=== PATIENT | male | born 1930 | race Caucasian/White ===

== ENCOUNTER 2016-03-08 18:35 | Emergency (ER) | payer OTHER ==
[~2016-03-08] VITALS: Ht 180.3 cm; Wt 58.7 kg
[~2016-03-08 18:35] MED LIST: Z.0.NO CURRENT MEDS
[2016-03-08 18:47] VITALS: BP 113/62; PULSE 63; RESP 16; TEMP 98.3; O2SAT 97
[2016-03-08] MEDS ORDERED: VITA100064 PO (19:04)
[2016-03-08] MEDS ORDERED: TETANUS/DIPHTHERIA TOXOID ADULT 0.5 ML VIAL IM ONE (19:15)
--- NOTE | 2016-03-08 20:03 | RADHPO ---
EXAM DATE/TIME: 03/08/2016 19:25 [facility] COMPARISON: No previous studies available for comparison. INDICATIONS : Trauma. Fall. Abrasion left temporal region. RADIATION DOSE: 58.98 CTDIvol (mGy) MEDICAL HISTORY : None SURGICAL HISTORY : None. ENCOUNTER: Initial ACUITY: 1 day PAIN SCALE: 2/10 LOCATION: Left temporal TECHNIQUE: Multiple contiguous axial images were obtained of the head. Using automated exposure control and adj ustment of the mA and/or kV according to patient size, radiation dose was kept as low as reasonably a chievable to obtain optimal diagnostic quality images. FINDINGS: There is mild atrophy. No hemorrhage, acute infarct, or mass. No fractures are seen. There is a parti ally calcified mass in the right temporal soft tissues on axial image #9 measuring 1.5 x 1.4 cm CONCLUSION: Right temporal skin mass which should be evaluated with direct inspection. No acute findings. David Yun MD on March 08, 2016 at 20:01 Board Certified Radiologist. This report was verified electronically.
--- NOTE | 2016-03-08 20:05 | RADHPO ---
EXAM DATE/TIME: 03/08/2016 19:25 [facility] COMPARISON: No previous studies available for comparison. INDICATIONS : Trauma. Fall. Neck pain. RADIATION DOSE: 26.63 CTDIvol (mGy) MEDICAL HISTORY : None SURGICAL HISTORY : None. ENCOUNTER: Initial ACUITY: 1 day PAIN SCALE: 2/10 LOCATION: neck TECHNIQUE: Volumetric scanning of the cervical spine was performed. Multiplanar reconstructions in the sagittal, coronal and oblique axial planes were performed. Using automated exposure control and adjustment o f the mA and/or kV according to patient size, radiation dose was kept as low as reasonably achievable to obtain optimal diagnostic quality images. FINDINGS: There is severe disc space narrowing at C5-6 and C6-7 and C7-T1 with endplate sclerosis and multileve l osteophytosis. No prevertebral soft tissue swelling or compression deformity. Moderate multilevel f acet hypertrophic changes greatest at C3-4 and C4-5. The odontoid process is intact. Multilevel uncov ertebral hypertrophy greatest at C4-5 and C5-6. Carotid artery calcifications are noted bilaterally. Multiple central disc protrusions are noted at C2-3, C3-4, C4-5. Diffuse disc osteophyte complex at C 5-6 and C6-7. Visualized portions of the lungs demonstrate emphysema. Mild to moderate canal stenosis at C3-4, moderate stenosis at C4-5 and severe stenosis at C5-6 and C6-7. CONCLUSION: Degenerative changes are noted without evidence for acute fracture or listhesis. Carotid artery ather osclerosis and emphysema. David Yun MD on March 08, 2016 at 20:02 Board Certified Radiologist. This report was verified electronically.
--- NOTE | 2016-03-08 20:29 | PD ---
HPI Chief Complaint: Head Injury Time Seen by Provider: 18:53 Travel History International Travel<30 days: No Contact w/Intl Traveler<30days: No Traveled to known affect area: No History of Present Illness HPI Patient is an 85-year-old male who comes in after a trip and fall overnight. He says that his feet slipped out from under him and he fell. His reports that he hit the side of his head on the nightstand. There was no loss of consciousness. He has been feeling fine since the event. They came in because it was still oozing blood. Patient has several skin cancers, which his says he does not want to have treated. He denies any headache, dizziness, blurred vision. He denies chest pain or shortness of breath. He denies numbness or tingling in his extremities. He does not know when his last tetanus vaccine was. PFSH Past Medical History Cancer: Yes (Skin cancer to back and face. ) Tetanus Vaccination: Unknown Influenza Vaccination: No Past Surgical History Surgical History: No Previous Surgery Social History Alcohol Use: No (Quit years ago per pt) Tobacco Use: Yes (1/2 PACK A DAY) Substance Use: No Allergies-Medications (Allergen,Severity, Reaction): Coded Allergies: No Known Allergies (Verified , 03/08/16) Reported Meds & Prescriptions Reported Meds & Active Scripts Active Reported Vitamin D (Cholecalciferol) 1,000 Unit Tab 1,000 Units PO DAILY Review of Systems Except as stated in HPI: all other systems reviewed are Neg General / Constitutional: No: Fever, Chills Eyes: No: Diploplia, Blurred Vision HENT: No: Headaches, Lightheadedness Cardiovascular: No: Chest Pain or Discomfort Respiratory: No: Shortness of Breath Gastrointestinal: No: Nausea, Vomiting Musculoskeletal: No: Pain Skin: Positive Lumps, Positive Lesions, No Change in Pigmentation Neurologic: No: Weakness, Dizziness, Syncope Physical Exam Narrative GENERAL: Awake and alert in no acute distress. SKIN: Warm and dry. Several lesions around the face that look cancerous. Abrasion to the left side of the forehead, no active bleeding. HEAD: Atraumatic. Normocephalic. EYES: Pupils equal and round. No scleral icterus. Her ocular movements intact. ENT: Mucous membranes pink and moist. NECK: Trachea midline. No JVD. CARDIOVASCULAR: Regular rate and rhythm. No murmur appreciated. RESPIRATORY: No accessory muscle use. Clear to auscultation. Breath sounds equal bilaterally. MUSCULOSKELETAL: No obvious deformities. No clubbing. No cyanosis. No edema. NEUROLOGICAL: Awake and alert. No obvious cranial nerve deficits. Motor grossly within normal limits. Normal speech. PSYCHIATRIC: Appropriate mood and affect; insight and judgment normal. Data Data Last Documented VS Vital Signs Date Time Temp Pulse Resp B/P Pulse Ox O2 Delivery O2 Flow Rate FiO2 03/08/16 20:30 76 18 115/64 98 Room Air 03/08/16 18:[address] Brain W/O Iv Contrast(Rout) (03/08/16 ) Ct Cerv Spine W/O Contrast (03/08/16 ) Tetanus/Diphtheria Tox Adult (Tetanus/Di (03/08/16 19:15) Wound Care (03/08/16 19:29) MDM Medical Decision Making Medical Screen Exam Complete: Yes Emergency Medical Condition: Yes Differential Diagnosis ICH versus skull fracture versus abrasion versus fall Narrative Course Patient is an 85-year-old male who comes in after a fall early this morning. Exam shows abrasion to left side of forehead, no active bleeding. CT head and cervical spine performed show no acute abnormalities. Wound bandaged and tetanus vaccine is updated. advised to change the bandage daily, make sure it clean and dry. Advised they should have the skin cancers looked at as the likely need to be removed. Advised follow-up with his doctor. Advised to return to the ED as needed for any worsening symptoms. Diagnosis Primary Impression: Fall Qualified Code: W19.XXXA - Fall, initial encounter Additional Impression: Abrasion Patient Instructions: Abrasion (ED), Fall Prevention (ED), General Instructions Additional Instructions: Follow up with your doctor. You should see a cotton expert regarding the skin cancer. Return to the ED as needed for any worsening symptoms. Disposition: 01 DISCHARGE HOME Condition: Stable Lindsay Gutierrez MD Mar 08, 2016 20:29
[2016-03-08 20:30] VITALS: BP 115/64; PULSE 76; RESP 18; O2SAT 98
== END 2016-03-08 21:00 | disposition home or self-care (01) ==
LOC: PHED 18:35
DX: S00.81XA Abrasion of other part of head, initial encounter (principal); F17.210 Nicotine dependence, cigarettes, uncomplicated; W01.190A Fall on same level from slipping, tripping and stumbling with subsequent striking against furniture, initial encounter; Y93.9 Activity, unspecified; Y92.9 Unspecified place or not applicable; Y99.9 Unspecified external cause status; Z23 Encounter for immunization
CPT/HCPCS: 70450; 72125; 90471; 90714

== ENCOUNTER 2017-07-24 08:57 | Inpatient (IN) | payer OTHER, MEDICARE ==
[2017-07-24] VITALS (10 sets, daily range): BP systolic 99–178; BP diastolic 53–81; PULSE 62–77; RESP 19–24; TEMP 96.1–97; O2SAT 2–96
[~2017-07-24 08:57] MED LIST changes: +VITA100064 PO; -Z.0.NO CURRENT MEDS
[2017-07-24] MEDS ORDERED: LEVO25TA4 PO (09:06)
--- NOTE | 2017-07-24 09:39 | PD ---
HPI Chief Complaint: Respiratory Symptoms Time Seen by Provider: 09:30 Travel History International Travel<30 days: No Contact w/Intl Traveler<30days: No Traveled to known affect area: No History of Present Illness HPI This 86-year-old male is brought for evaluation of shortness of breath. He has a history of COPD. He smokes. He has not smoked in the last 2 days because his will let him smoke. He has been very congested. He has also a history of Alzheimer's disease. He has not been having any chest pain. He has no history of heart disease. His says that he has been losing weight for the last couple of years. She says he had a chest x-ray about a year and a half ago. He has had periods of agitation and panic at times. 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 ) COPD: Yes Thyroid Disease: Yes Social History Alcohol Use: No (Quit years ago per pt) Tobacco Use: Yes (1PPD) Substance Use: No Allergies-Medications (Allergen,Severity, Reaction): Coded Allergies: No Known Allergies (Verified Adverse Reaction, Unknown, 07/24/17) Reported Meds & Prescriptions Reported Meds & Active Scripts Active Reported Levothyroxine (Levothyroxine Sodium) 25 Mcg Tab Unknown Dose PO DAILY Review of Systems General / Constitutional: No: Fever, Chills Eyes: No: Diploplia, Blurred Vision HENT: No: Headaches, Vertigo Cardiovascular: No: Chest Pain or Discomfort Respiratory: Positive: Cough, Shortness of Breath Gastrointestinal: No: Nausea, Vomiting Genitourinary: No: Frequency, Dysuria Musculoskeletal: No: Myalgias, Arthralgias Skin: Positive Rash Neurologic: Positive: Weakness, No: Dizziness, Syncope Psychiatric: Positive: Anxiety Endocrine: No: Cold Intolerance Hematologic/Lymphatic: No: Easy Bruising Physical Exam Narrative GENERAL: Thin chronically ill appearing male. His oxygen saturation is 89% SKIN: Focused skin assessment warm/dry. He has multiple skin lesions which are fairly diffuse. There is a black lesion on the left side of his nose which has apparently been evaluated by a torch solderer HEAD: Atraumatic. Normocephalic. EYES: Pupils equal and round. No scleral icterus. No injection or drainage. ENT: No nasal bleeding or discharge. Mucous membranes pink and moist. NECK: Trachea midline. No JVD. CARDIOVASCULAR: Regular rate and rhythm. No murmur appreciated. RESPIRATORY: accessory muscle use. Clear to auscultation. Diminished breath sounds bilaterally GASTROINTESTINAL: Abdomen soft, non-tender, nondistended. Hepatic and splenic margins not palpable. MUSCULOSKELETAL: No obvious deformities. No clubbing. No cyanosis. No edema. NEUROLOGICAL: Awake and alert. No obvious cranial nerve deficits. Motor grossly within normal limits. Normal speech. PSYCHIATRIC: Appropriate mood and affect; insight and judgment normal. Data Data Last Documented VS Vital Signs Date Time Temp Pulse Resp B/P (MAP) Pulse Ox O2 Delivery O2 Flow Rate FiO2 07/24/17 10:54 72 22 124/53 (76) 92 Nasal Cannula 2.00 Orders Orders Complete Blood Count With Diff (07/24/17 09:36) Comprehensive Metabolic Panel (07/24/17 09:36) B-Type Natriuretic Peptide (07/24/17 09:36) Act Partial Throm Time (Ptt) (07/24/17 09:36) Prothrombin Time / Inr (Pt) (07/24/17 09:36) Troponin I (07/24/17 09:36) Urinalysis - C+S If Indicated (07/24/17 09:36) Iv Access Insert/Monitor (07/24/17 09:36) Electrocardiogram (07/24/17 09:36) Ecg Monitoring (07/24/17 09:36) Oximetry (07/24/17 09:36) Oxygen Administration (07/24/17 09:36) Chest, Single Ap (07/24/17 09:36) Sodium Chloride 0.9% Flush (Ns Flush) (07/24/17 09:45) Methylprednisolone So Succ Inj (Solumedr (07/24/17 09:45) Albuterol-Ipratropium Neb (Duoneb Neb) (07/24/17 09:45) Blood Culture (07/24/17 10:26) Ceftriaxone Inj (Rocephin Inj) (07/24/17 10:30) Azithromycin Inj (Zithromax Inj) (07/24/17 10:30) Labs Laboratory Tests Test 07/24/17 09:45 White Blood Count 8.5 TH/MM3 Red Blood Count 4.28 MIL/MM3 Hemoglobin 13.2 GM/DL Hematocrit 39.8 % Mean Corpuscular Volume 92.9 FL Mean Corpuscular Hemoglobin 30.8 PG Mean Corpuscular Hemoglobin Concent 33.1 % Red Cell Distribution Width 13.2 % Platelet Count 227 TH/MM3 Mean Platelet Volume 8.1 FL Neutrophils (%) (Auto) 71.9 % Lymphocytes (%) (Auto) 13.3 % Monocytes (%) (Auto) 7.7 % Eosinophils (%) (Auto) 5.3 % Basophils (%) (Auto) 1.8 % Neutrophils # (Auto) 6.0 TH/MM3 Lymphocytes # (Auto) 1.1 TH/MM3 Monocytes # (Auto) 0.7 TH/MM3 Eosinophils # (Auto) 0.5 TH/MM3 Basophils # (Auto) 0.2 TH/MM3 CBC Comment DIFF FINAL Differential Comment Prothrombin Time 10.8 SEC Prothromb Time International Ratio 1.1 RATIO Activated Partial Thromboplast Time 27.1 SEC Blood Urea Nitrogen 23 MG/DL Creatinine 1.30 MG/DL Random Glucose 111 MG/DL Total Protein 6.5 GM/DL Albumin 3.0 GM/DL Calcium Level 8.6 MG/DL Alkaline Phosphatase 88 U/L Aspartate Amino Transf (AST/SGOT) 17 U/L Alanine Aminotransferase (ALT/SGPT) 15 U/L Total Bilirubin 0.5 MG/DL Sodium Level 140 MEQ/L Potassium Level 4.2 MEQ/L Chloride Level 106 MEQ/L Carbon Dioxide Level 29.0 MEQ/L Anion Gap 5 MEQ/L Estimat Glomerular Filtration Rate 52 ML/MIN Troponin I LESS THAN 0.02 NG/ML B-Type Natriuretic Peptide 92 PG/ML MDM Medical Decision Making Medical Screen Exam Complete: Yes Emergency Medical Condition: Yes Medical Record Reviewed: Yes Differential Diagnosis Differential includes COPD exacerbation, pneumonia, CHF Narrative Course X-ray is read as showing a right lower lobe consolidation. Hemoglobin is 13 with a white count of 8000 Diagnosis Primary Impression: Pneumonia Additional Impression: COPD exacerbation Juno Sutherland MD July 24, 2017 09:39
[2017-07-24] MEDS: RESP: ALBUTEROL 2.5 MG/IPRATROPIUM 0.5 MG NEB (SCH) INH ×2 (09:44→09:46)
[2017-07-24] MEDS ORDERED: methylPREDNISolone SOD SUCC 125 MG/2 ML VIAL IV PUSH ONE (09:45)
[2017-07-24] MEDS ORDERED: SODIUM CHLORIDE 0.9% FLUSH 10 ML FLUSH IVF PRN (09:45)
[2017-07-24 09:55] LABS: BASOPHIL # 0.2 TH/MM3 (0-0.2); BASOPHIL % 1.8 % (0.0-2.0); EOSINOPHIL # 0.5 TH/MM3 (0-0.4); EOSINOPHIL % 5.3 % (0.0-4.0); HEMATOCRIT 39.8 % (39.0-51.0); HEMOGLOBIN 13.2 GM/DL (13.0-17.0); LYMPH % 13.3 % (9.0-44.0); LYMPHOCYTE # 1.1 TH/MM3 (1.0-4.8); MEAN CELL VOLUME 92.9 FL (80.0-100.0); MEAN CORPUSCULAR HEMOGLOBIN 30.8 PG (27.0-34.0); MEAN CORPUSCULAR HGB CONC 33.1 % (32.0-36.0); MEAN PLATELET VOLUME 8.1 FL (7.0-11.0); MONO % 7.7 % (0.0-8.0); MONOCYTE # 0.7 TH/MM3 (0-0.9); NEUT % 71.9 % (16.0-70.0); PLATELET COUNT 227 TH/MM3 (150-450); RED BLOOD COUNT 4.28 MIL/MM3 (4.50-5.90); RED CELL DISTRIBUTION WIDTH 13.2 % (11.6-17.2); WHITE BLOOD COUNT 8.5 TH/MM3 (4.0-11.0)
--- NOTE | 2017-07-24 10:04 | RADRPT ---
EXAM DATE: 07/24/2017 10:00 AM EDT AGE/SEX: 86 years / Male INDICATIONS: Short of breath. CLINICAL DATA: This is the patient's initial encounter. Patient reports that signs and symptoms have been present for 1 week and indicates a pain score of 3/10. MEDICAL/SURGICAL HISTORY: Chronic obstructive pulmonary disease. None. COMPARISON: No prior [facility] exams available for comparison. FINDINGS: A single AP view of the chest demonstrates right basal consolidation. Left lung clear. Heart normal i n size. The cardiomediastinal contours are unremarkable. Osseous structures are intact. CONCLUSION: Right basilar consolidation. Treatment and follow-up to resolution. Electronically signed by: Kip Smalls MD 07/24/2017 10:03 AM EDT
[2017-07-24 10:12] LABS: CHLORIDE 106 MEQ/L (98-107); SODIUM (NA) 140 MEQ/L (136-145)
[2017-07-24 10:15] LABS: CALCIUM 8.6 MG/DL (8.5-10.1)
[2017-07-24 10:16] LABS: BLOOD UREA NITROGEN 23 MG/DL (7-18); GLUCOSE,RANDOM 111 MG/DL (74-106)
[2017-07-24 10:18] LABS: INTERNATIONAL NORMALIZED RATIO 1.1 RATIO; PROTHROMBIN TIME - PATIENT 10.8 SEC (9.8-11.6)
[2017-07-24 10:19] LABS: ALT (GPT) 15 U/L (12-78); AST (GOT) 17 U/L (15-37); GLOMERULAR FILTRATION RATE 52 ML/MIN (>89)
[2017-07-24 10:20] LABS: TOTAL BILIRUBIN ADULT 0.5 MG/DL (0.2-1.0); TOTAL PROTEIN 6.5 GM/DL (6.4-8.2)
[2017-07-24 10:22] LABS: ALKALINE PHOSPHATASE 88 U/L (45-117)
[2017-07-24 10:24] LABS: TROPONIN I LESS THAN 0.02 NG/ML (0.02-0.05)
[2017-07-24] MEDS ORDERED: AZITHROMYCIN INJ 500 MG in SODIUM CHLOR 0.9% 250 ML INJ 250 ML IV ONE (10:30)
[2017-07-24] MEDS ORDERED: cefTRIAXone INJ 2,000 MG in SODIUM CHLORIDE 0.9% INJ 100 ML IV ONE (10:30)
--- NOTE | 2017-07-24 11:16 | EKG ---
Date Performed: 07/24/2017 Time Performed: 09:04:39 PTAGE: 86 years EKG: Sinus rhythm WITH FIRST DEGREE AV BLOCK WITH OCCASIONAL VENTRICULAR PREMATURE COMPLEXES LEFT AXIS DEVIATION NONSP ECIFIC INTRAVENTRICULAR CONDUCTION DELAY POSSIBLE ANTERIOR MYOCARDIAL INFARCTION ABNORMAL ECG NO PREVIOUS TRACING DOCTOR: Diomedes Stephenson Interpretating Date/Time 07/24/2017 11:15:20
[2017-07-24] MEDS ORDERED: MAGNESIUM HYDROXIDE SUSP 30 ML CUP PO PRN (12:00)
[2017-07-24] MEDS ORDERED: NALOXONE HCL 0.4 MG/ML AMP IV PUSH PRN (12:00)
[2017-07-24] MEDS ORDERED: RESP: ALBUTEROL 2.5 MG/IPRATROPIUM 0.5 MG NEB (PRN) NEB (12:00)
[2017-07-24] MEDS ORDERED: ONDANSETRON HCL 4 MG/2 ML VIAL IVP PRN (12:00)
[2017-07-24] MEDS ORDERED: ACETAMINOPHEN 325 MG TAB PO PRN ×2 (12:00)
[2017-07-24 12:07] LABS: BILIRUBIN, URINE NEG (NEG); BLOOD, URINE NEG (NEG); GLUCOSE,URINE NEG (NEG); KETONE, URINE NEG (NEG); NITRITE,URINE NEG (NEG); URINE LEUKOCYTE ESTERASE NEG (NEG)
[2017-07-24 12:16] LABS: URINE COLOR STRAW (YELLW/STRAW)
[2017-07-24 12:20] LABS: WBC, URINE 0-2 /hpf (0-5)
[2017-07-24 12:22] LABS: SQUAMOUS EPITHELIAL CELL URINE 0-2 /hpf (0-5)
--- NOTE | 2017-07-24 12:55 | HHI.HP ---
HPI Service [facility] Primary Care Physician Vince Vuong MD Admission Diagnosis PNEUMONIA, COPD EXACERBATION Diagnoses: (1) Pneumonia (2) COPD exacerbation Chief Complaint: Shortness of breath and nonproductive cough Travel History International Travel<30 Days: No Contact w/Intl Traveler <30 Da: No Traveled to Known Affected Are: No History of Present Illness 86-year-old male with a past medical history of Alzheimer disease, hypothyroidism was brought to the emergency department for evaluation of worsening symptoms of shortness of breath associated with nonproductive cough times 10 days duration. Per patient's , patient has been congested and was recently treated with Robitussin by his PCP without any improvement. There has been no report of chest pain. And patient does not endorse any febrile episode. Patient is a smoker has been smoking over the past 60+ years. Chest x -ray in the ED reveals right basilar consolidation Review of Systems Except as stated in HPI: all other systems reviewed are Neg Past Family Social History Past Medical History Alzheimer's Disease: Yes Cancer: Yes (Skin cancer to back and face. ) COPD: Yes Thyroid Disease: Yes Past Surgical History Skin cancer removed from the right temporal Reported Medications Levothyroxine (Levothyroxine Sodium) 25 Mcg Tab Unknown Dose PO DAILY Allergies: Coded Allergies: No Known Allergies (Verified Allergy, Unknown, 07/24/17) Family History Due to patient advanced age, family history not relevant for this case Social History Alcohol Use: No (Quit years ago per pt) Tobacco Use: Yes (1PPD) Substance Use: No Physical Exam Vital Signs Vital Signs Date Time Temp Pulse Resp B/P (MAP) Pulse Ox O2 Delivery O2 Flow Rate FiO2 07/24/17 12:26 77 24 99/62 (74) 94 Nasal Cannula 2.00 07/24/17 12:21 Nasal Cannula 07/24/17 10:54 72 22 124/53 (76) 92 Nasal Cannula 2.00 07/24/17 09:48 71 20 109/55 (73) 95 07/24/17 09:44 Nasal Cannula 2.00 07/24/17 09:44 94 07/24/17 09:02 77 20 129/69 (82) 89 Physical Exam GENERAL: This is a well-nourished, well-developed patient, in no apparent distress. SKIN: No rashes, ecchymoses or lesions. Cool and dry. Skin lesions to his nose , back HEAD: Atraumatic. Normocephalic. No temporal or scalp tenderness. EYES: Pupils equal round and reactive. Extraocular motions intact. No scleral icterus. No injection or drainage. ENT: Nose without bleeding, purulent drainage or septal hematoma. Throat without erythema, tonsillar hypertrophy or exudate. Uvula midline. Airway patent. NECK: Trachea midline. No JVD or lymphadenopathy. Supple, nontender, no meningeal signs. CARDIOVASCULAR: Regular rate and rhythm without murmurs, gallops, or rubs. RESPIRATORY: Clear to auscultation. Breath sounds decreased bilaterally. + wheezes GASTROINTESTINAL: Abdomen soft, non-tender, nondistended. No hepato-splenomegaly , or palpable masses. No guarding. MUSCULOSKELETAL: Extremities without clubbing, cyanosis, or edema. No joint tenderness, effusion, or edema noted. No calf tenderness. Negative Homans sign bilaterally. NEUROLOGICAL: Awake and alert. Cranial nerves II through XII intact. Motor and sensory grossly within normal limits. Five out of 5 muscle strength in all muscle groups. Normal speech. Laboratory Laboratory Tests Test 07/24/17 09:45 07/24/17 11:35 White Blood Count 8.5 Red Blood Count 4.28 Hemoglobin 13.2 Hematocrit 39.8 Mean Corpuscular Volume 92.9 Mean Corpuscular Hemoglobin 30.8 Mean Corpuscular Hemoglobin Concent 33.1 Red Cell Distribution Width 13.2 Platelet Count 227 Mean Platelet Volume 8.1 Neutrophils (%) (Auto) 71.9 Lymphocytes (%) (Auto) 13.3 Monocytes (%) (Auto) 7.7 Eosinophils (%) (Auto) 5.3 Basophils (%) (Auto) 1.8 Neutrophils # (Auto) 6.0 Lymphocytes # (Auto) 1.1 Monocytes # (Auto) 0.7 Eosinophils # (Auto) 0.5 Basophils # (Auto) 0.2 CBC Comment DIFF FINAL Differential Comment Prothrombin Time 10.8 Prothromb Time International Ratio 1.1 Activated Partial Thromboplast Time 27.1 Blood Urea Nitrogen 23 Creatinine 1.30 Random Glucose 111 Total Protein 6.5 Albumin 3.0 Calcium Level 8.6 Alkaline Phosphatase 88 Aspartate Amino Transf (AST/SGOT) 17 Alanine Aminotransferase (ALT/SGPT) 15 Total Bilirubin 0.5 Sodium Level 140 Potassium Level 4.2 Chloride Level 106 Carbon Dioxide Level 29.0 Anion Gap 5 Estimat Glomerular Filtration Rate 52 Troponin I LESS THAN 0.02 B-Type Natriuretic Peptide 92 Urine Collection Type VOIDED Urine Color STRAW Urine Turbidity CLEAR Urine pH 5.0 Urine Specific [place] LESS/EQUAL 1.005 Urine Protein NEG Urine Glucose (UA) NEG Urine Ketones NEG Urine Occult Blood NEG Urine Nitrite NEG Urine Bilirubin NEG Urine Urobilinogen 0.2 Urine Leukocyte Esterase NEG Urine WBC 0-2 Urine Squamous Epithelial Cells 0-2 Microscopic Urinalysis Comment CULT NOT INDICATED Date/Time Source Procedure Growth Status 07/24/17 10:40 Blood Peripheral Aerobic Blood Culture Pending Received 07/24/17 10:40 Blood Peripheral Anaerobic Blood Culture Pending Received Result Diagram: 07/24/17 0945 07/24/17 0945 Imaging Last Impressions Chest X-Ray 07/24/17 0936 Signed Impressions: CONCLUSION: Right basilar consolidation. Treatment and follow-up to resolution. Septic Shock Reassessment Septic shock perfusion: reassessment completed Caprini VTE Risk Assessment Caprini VTE Risk Assessment: Mod/High Risk (score >= 2) Caprini Risk Assessment Model Point Value = 1 Point Value = 2 Point Value = 3 Point Value = 5 Age 41-60 Minor surgery BMI > 25 kg/m2 Swollen legs Varicose veins or History of unexplained or recurrent spontaneous Oral contraceptives or hormone replacement Sepsis (< 1 month) Serious lung disease, including pneumonia (< 1 month) Abnormal pulmonary function Acute myocardial infarction Congestive heart failure (< 1 month) History of inflammatory bowel disease Medical patient at bed rest Age 61-74 Arthroscopic surgery Major open surgery (> 45 min) Laparoscopic surgery (> 45 min) Malignancy Confined to bed (> 72 hours) Immobilizing plaster cast Central venous access Age >= 75 History of VTE Family history of VTE Factor V Leiden Prothrombin [id number] Lupus anticoagulant Anticardiolipin antibodies Elevated serum homocysteine Heparin-induced thrombocytopenia Other congenital or acquired thrombophilia Stroke (< 1 month) Elective arthroplasty Hip, pelvis, or leg fracture Acute spinal cord injury (< 1 month) Prophylaxis Regimen Total Risk Factor Score Risk Level Prophylaxis Regimen 0-1 Low Early ambulation 2 Moderate Order ONE of the following: *Sequential Compression Device (SCD) *Heparin 5000 units SQ BID 3-4 Higher Order ONE of the following medications: *Heparin 5000 units SQ TID *Enoxaparin/Lovenox 40 mg SQ daily (WT < 150 kg, CrCl > 30 mL/min) *Enoxaparin/Lovenox 30 mg SQ daily (WT < 150 kg, CrCl > 10-29 mL/min) *Enoxaparin/Lovenox 30 mg SQ BID (WT < 150 kg, CrCl > 30 mL/min) AND/OR *Sequential Compression Device (SCD) 5 or more Highest Order ONE of the following medications: *Heparin 5000 units SQ TID (Preferred with Epidurals) *Enoxaparin/Lovenox 40 mg SQ daily (WT < 150 kg, CrCl > 30 mL/min) *Enoxaparin/Lovenox 30 mg SQ daily (WT < 150 kg, CrCl > 10-29 mL/min) *Enoxaparin/Lovenox 30 mg SQ BID (WT < 150 kg, CrCl > 30 mL/min) AND *Sequential Compression Device (SCD) Assessment and Plan Problem List: (1) COPD exacerbation ICD Code: J44.1 - Chronic obstructive pulmonary disease with (acute) exacerbation Status: Acute (2) Pneumonia ICD Code: J18.9 - Pneumonia, unspecified organism Status: Acute Assessment and Plan 86-year-old man with COPD exacerbation Start Solu-Medrol 40 mg IV q. 8-hour, Symbicort, Spiriva, bronchodilator schedule and as needed, Mucinex Continue with antibiotics Maintain oxygen saturation above 88% Community-acquired bacterial pneumonia Chest x-ray noted and reviewed by me with finding of right basilar consolidation Study per Rocephin and azithromycin IV x1 in ED, will continue antibiotics Check sputum culture, pneumococcal and Legionella urinary antigens Hypothyroidism Resume outpatient medications Alzheimer Chronic Ulcerated wound Consult wound care DVT prophylaxis: Bilateral SCDs Code Status DNR Discussed Condition With Patient, , ED physician Physician Certification 2 Midnight Certification Type: Admission for Inpatient Services Order for Inpatient Services The services are ordered in accordance with Medicare regulations or non- Medicare payer requirements, as applicable. In the case of services not specified as inpatient-only, they are appropriately provided as inpatient services in accordance with the 2-midnight benchmark. Estimated LOS (days): 2 days is the estimated time the patient will need to remain in the hospital, assuming treatment plan goals are met and no additional complications. Post-Hospital Plan: Not yet determined Kip Lyons MD July 24, 2017 12:55
[2017-07-24] MEDS: RESP: ALBUTEROL 2.5 MG/IPRATROPIUM 0.5 MG NEB (SCH) NEB ×3 (13:22→19:31)
[2017-07-24] MEDS: methylPREDNISolone SOD SUCC 40 MG/1 ML VIAL IV PUSH SCH (17:03)
[2017-07-24] MEDS: BUDESONIDE-FORMOTEROL 160/4.5 MCG INHALER INH SCH (21:18)
[2017-07-24] MEDS: SODIUM CHLORIDE 0.9% FLUSH 10 ML FLUSH IV FLUSH SCH (21:18)
[2017-07-24] MEDS: guaiFENesin E.R. 600 MG TAB PO SCH (21:18)
[2017-07-25] VITALS (7 sets, daily range): BP systolic 100–122; BP diastolic 51–58; PULSE 76–103; RESP 18–20; TEMP 96.4–97.5; O2SAT 92–97
[2017-07-25] MEDS: methylPREDNISolone SOD SUCC 40 MG/1 ML VIAL IV PUSH SCH ×3 (01:50→22:18)
[2017-07-25] MEDS: SODIUM CHLORIDE 0.9% FLUSH 10 ML FLUSH IV FLUSH PRN (01:50)
[2017-07-25 06:07] LABS: AUTOMATED NEUTROPHIL # 15.6 TH/MM3 (1.8-7.7); BASOPHIL % 0.1 % (0.0-2.0); HEMOGLOBIN 12.6 GM/DL (13.0-17.0); LYMPH % 2.9 % (9.0-44.0); LYMPHOCYTE # 0.5 TH/MM3 (1.0-4.8); MEAN CELL VOLUME 93.1 FL (80.0-100.0); MEAN CORPUSCULAR HGB CONC 33.3 % (32.0-36.0); MEAN PLATELET VOLUME 8.1 FL (7.0-11.0); MONO % 2.4 % (0.0-8.0); MONOCYTE # 0.4 TH/MM3 (0-0.9); NEUT % 94.6 % (16.0-70.0); PLATELET COUNT 223 TH/MM3 (150-450); RED BLOOD COUNT 4.08 MIL/MM3 (4.50-5.90); RED CELL DISTRIBUTION WIDTH 13.4 % (11.6-17.2); WHITE BLOOD COUNT 16.5 TH/MM3 (4.0-11.0)
[2017-07-25 06:13] LABS: CHLORIDE 106 MEQ/L (98-107); SODIUM (NA) 141 MEQ/L (136-145)
[2017-07-25 06:15] LABS: CALCIUM 8.4 MG/DL (8.5-10.1)
[2017-07-25 06:16] LABS: ALBUMIN 2.8 GM/DL (3.4-5.0); BICARBONATE 25.9 MEQ/L (21.0-32.0); BLOOD UREA NITROGEN 27 MG/DL (7-18); GLUCOSE,RANDOM 200 MG/DL (74-106)
[2017-07-25 06:19] LABS: ALT (GPT) 14 U/L (12-78); AST (GOT) 10 U/L (15-37); GLOMERULAR FILTRATION RATE 44 ML/MIN (>89)
[2017-07-25 06:21] LABS: TOTAL BILIRUBIN ADULT 0.5 MG/DL (0.2-1.0); TOTAL PROTEIN 6.3 GM/DL (6.4-8.2)
[2017-07-25 06:22] LABS: ALKALINE PHOSPHATASE 84 U/L (45-117)
[2017-07-25] MEDS: RESP: ALBUTEROL 2.5 MG/IPRATROPIUM 0.5 MG NEB (SCH) NEB ×4 (08:00→19:22)
[2017-07-25] MEDS: BUDESONIDE-FORMOTEROL 160/4.5 MCG INHALER INH SCH ×2 (08:26→22:17)
[2017-07-25] MEDS: guaiFENesin E.R. 600 MG TAB PO SCH ×2 (08:26→22:18)
[2017-07-25] MEDS: cefTRIAXone INJ 1,000 MG in SODIUM CHLORIDE 0.9% INJ 100 ML IV SCH (08:28)
[2017-07-25] MEDS: SODIUM CHLORIDE 0.9% FLUSH 10 ML FLUSH IV FLUSH SCH ×2 (08:28→22:18)
[2017-07-25] MEDS: TIOTROPIUM BROMIDE 18 MCG INH INH SCH (08:32)
[2017-07-25] MEDS: AZITHROMYCIN INJ 500 MG in SODIUM CHLOR 0.9% 250 ML INJ 250 ML IV SCH (09:42)
--- NOTE | 2017-07-25 10:20 | HHI.PR ---
Subjective Remarks Follow-up COPD exacerbation/pneumonia July 25, 2017-patient seen and examined, reports some improvement of shortness of breath. No acute event overnight. Pleasantly confused. He was up ambulating with assistance of physical therapy today. Objective Vitals Vital Signs Date Time Temp Pulse Resp B/P (MAP) Pulse Ox O2 Delivery O2 Flow Rate FiO2 07/25/17 08:01 92 Nasal Cannula 2.00 07/25/17 07:49 96.6 79 20 100/51 (67) 97 07/25/17 00:20 97.5 81 20 104/54 (71) 92 07/24/17 20:00 96.1 76 20 178/81 (113) 93 07/24/17 19:31 95 Nasal Cannula 3.00 07/24/17 16:14 94 Nasal Cannula 3.00 07/24/17 16:00 96.8 62 19 100/55 (70) 96 07/24/17 12:56 07/24/17 12:26 77 24 99/62 (74) 94 Nasal Cannula 2.00 07/24/17 12:21 Nasal Cannula 07/24/17 12:00 97.0 67 21 117/56 (76) 96 07/24/17 10:54 72 22 124/53 (76) 92 Nasal Cannula 2.00 I/O 07/24/17 07/24/17 07/24/17 07/25/17 07/25/17 07/25/17 07:00 15:00 23:00 07:00 15:00 23:00 Intake Total 350 ml 240 ml 100 ml Output Total 400 ml 200 ml Balance 350 ml -160 ml -200 ml 100 ml Intake Oral 240 ml IV Total 350 ml 100 ml Output Urine Total 400 ml 200 ml # Voids 1 # Bowel Movements 0 Result Diagram: 07/25/17 0545 07/25/17 0545 Imaging Last Impressions Chest X-Ray 07/24/17 0936 Signed Impressions: CONCLUSION: Right basilar consolidation. Treatment and follow-up to resolution. Objective Remarks GENERAL: SKIN: Warm and dry. wound to left sided back covered with dressing HEAD: Normocephalic. EYES: No scleral icterus. No injection or drainage. NECK: Supple, trachea midline. No JVD or lymphadenopathy. CARDIOVASCULAR: Regular rate and rhythm without murmurs, gallops, or rubs. RESPIRATORY: Breath sounds decrease bilaterally. No accessory muscle use. GASTROINTESTINAL: Abdomen soft, non-tender, nondistended. MUSCULOSKELETAL: No cyanosis, or edema. BACK: Nontender without obvious deformity. No CVA tenderness. A/P Problem List: (1) COPD exacerbation ICD Code: J44.1 - Chronic obstructive pulmonary disease with (acute) exacerbation Status: Acute (2) Pneumonia ICD Code: J18.9 - Pneumonia, unspecified organism Status: Acute Assessment and Plan 86-year-old man with COPD exacerbation Decrease Solu-Medrol to 20 mg IV q. 12hour, continue Symbicort, Spiriva, bronchodilator schedule and as needed, Mucinex Continue with antibiotics Maintain oxygen saturation above 88% Community-acquired bacterial pneumonia Chest x-ray noted and reviewed by me with finding of right basilar consolidation S/p Rocephin and azithromycin IV x1 in ED, continue antibiotics sputum culture pending, pneumococcal and Legionella urinary antigens Hypothyroidism outpatient medications Leukocytosis Secondary to steroid Acute kidney injury Start Gentle IV fluid hydration and monitor BUN and creatinine Alzheimer Chronic Ulcerated wound Consult wound care DVT prophylaxis: Bilateral SCDs Kip Lyons MD July 25, 2017 10:20
[2017-07-25] MEDS: SODIUM CHLOR 0.9% 1000 ML INJ 1,000 ML IV SCH ×2 (10:37→22:25)
[2017-07-26] VITALS (7 sets, daily range): BP systolic 131–168; BP diastolic 67–79; PULSE 76–87; RESP 18–20; TEMP 96.2–97.1; O2SAT 92–97
[2017-07-26 06:42] LABS: AUTOMATED NEUTROPHIL # 16.2 TH/MM3 (1.8-7.7); BASOPHIL % 0.1 % (0.0-2.0); EOSINOPHIL % 0.1 % (0.0-4.0); HEMATOCRIT 39.3 % (39.0-51.0); HEMOGLOBIN 12.8 GM/DL (13.0-17.0); LYMPH % 2.6 % (9.0-44.0); LYMPHOCYTE # 0.5 TH/MM3 (1.0-4.8); MEAN CELL VOLUME 93.9 FL (80.0-100.0); MEAN CORPUSCULAR HEMOGLOBIN 30.7 PG (27.0-34.0); MEAN CORPUSCULAR HGB CONC 32.7 % (32.0-36.0); MEAN PLATELET VOLUME 8.3 FL (7.0-11.0); MONO % 3.3 % (0.0-8.0); MONOCYTE # 0.6 TH/MM3 (0-0.9); NEUT % 93.9 % (16.0-70.0); PLATELET COUNT 232 TH/MM3 (150-450); RED BLOOD COUNT 4.18 MIL/MM3 (4.50-5.90); RED CELL DISTRIBUTION WIDTH 13.6 % (11.6-17.2); WHITE BLOOD COUNT 17.3 TH/MM3 (4.0-11.0)
[2017-07-26 06:47] LABS: BICARBONATE 27.8 MEQ/L (21.0-32.0); CALCIUM 8.1 MG/DL (8.5-10.1)
[2017-07-26 06:51] LABS: CREATININE 1.2 MG/DL (0.60-1.30)
[2017-07-26] MEDS: RESP: ALBUTEROL 2.5 MG/IPRATROPIUM 0.5 MG NEB (SCH) NEB ×4 (07:52→19:34)
[2017-07-26] MEDS: cefTRIAXone INJ 1,000 MG in SODIUM CHLORIDE 0.9% INJ 100 ML IV SCH (08:22)
[2017-07-26] MEDS: guaiFENesin E.R. 600 MG TAB PO SCH ×2 (08:23→20:09)
[2017-07-26] MEDS: SODIUM CHLORIDE 0.9% FLUSH 10 ML FLUSH IV FLUSH SCH ×2 (08:24→20:09)
[2017-07-26] MEDS: BUDESONIDE-FORMOTEROL 160/4.5 MCG INHALER INH SCH ×2 (08:24→21:29)
[2017-07-26] MEDS: TIOTROPIUM BROMIDE 18 MCG INH INH SCH (08:24)
[2017-07-26] MEDS: AZITHROMYCIN INJ 500 MG in SODIUM CHLOR 0.9% 250 ML INJ 250 ML IV SCH (09:04)
[2017-07-26] MEDS: methylPREDNISolone SOD SUCC 40 MG/1 ML VIAL IV PUSH SCH ×2 (09:52→20:09)
--- NOTE | 2017-07-26 10:09 | HHI.PR ---
Subjective Remarks Follow-up COPD exacerbation/pneumonia July 25, 2017-patient seen and examined, reports some improvement of shortness of breath. No acute event overnight. Pleasantly confused. He was up ambulating with assistance of physical therapy today. July 26, 2017-patient seen and examined, he was sitting by the nursing station. Pleasantly confused and no acute event overnight. Currently afebrile. Objective Vitals Vital Signs Date Time Temp Pulse Resp B/P (MAP) Pulse Ox O2 Delivery O2 Flow Rate FiO2 07/26/17 07:54 95 21 07/26/17 07:50 96.8 76 18 140/67 (91) 97 07/26/17 00:00 96.2 87 18 159/72 (101) 94 07/25/17 20:11 96.4 89 18 122/57 (78) 94 07/25/17 19:26 93 Nasal Cannula 3.00 07/25/17 15:58 97.4 103 20 116/58 (77) 93 07/25/17 11:24 96.6 76 20 104/56 (72) 94 I/O 07/25/17 07/25/17 07/25/17 07/26/17 07/26/17 07/26/17 07:00 15:00 23:00 07:00 15:00 23:00 Intake Total 100 ml 980 ml 1284 ml Output Total 200 ml 150 ml 850 ml Balance -200 ml -50 ml 980 ml 434 ml Intake Oral 980 ml 240 ml IV Total 100 ml 1044 ml Output Urine Total 200 ml 150 ml 850 ml # Voids 1 4 # Bowel Movements 0 Result Diagram: 07/26/17 0525 07/26/17 0525 Imaging Last Impressions Chest X-Ray 07/24/17 0936 Signed Impressions: CONCLUSION: Right basilar consolidation. Treatment and follow-up to resolution. Objective Remarks GENERAL: SKIN: Warm and dry. wound to left sided back covered with dressing HEAD: Normocephalic. EYES: No scleral icterus. No injection or drainage. NECK: Supple, trachea midline. No JVD or lymphadenopathy. CARDIOVASCULAR: Regular rate and rhythm without murmurs, gallops, or rubs. RESPIRATORY: Breath sounds decrease bilaterally. No accessory muscle use. GASTROINTESTINAL: Abdomen soft, non-tender, nondistended. MUSCULOSKELETAL: No cyanosis, or edema. BACK: Nontender without obvious deformity. No CVA tenderness. Procedures None A/P Problem List: (1) COPD exacerbation ICD Code: J44.1 - Chronic obstructive pulmonary disease with (acute) exacerbation Status: Acute (2) Pneumonia ICD Code: J18.9 - Pneumonia, unspecified organism Status: Acute Assessment and Plan 86-year-old man with COPD exacerbation Currently on Solu-Medrol to 20 mg IV q. 12hour, continue Symbicort, Spiriva, bronchodilator schedule and as needed, Mucinex Will switch patient to p.o. steroid 20 mg daily and discontinue Solu-Medrol Continue with antibiotics Maintain oxygen saturation above 88% Community-acquired bacterial pneumonia Chest x-ray noted and reviewed by me with finding of right basilar consolidation S/p Rocephin and azithromycin IV x1 in ED, continue antibiotics sputum culture pending Hypothyroidism outpatient medications Leukocytosis Secondary to steroid Acute kidney injury Improvement gentle IV fluid hydration and monitor BUN and creatinine Alzheimer Chronic Ulcerated wound Appreciate input from wound care DVT prophylaxis: Bilateral SCDs Kip Lyons MD July 26, 2017 10:09
[2017-07-26] MEDS ORDERED: Budeson-Formot 160-4.5 Mcg Inh INH (10:12)
[2017-07-26] MEDS ORDERED: SPIRCAP INH (10:12)
[2017-07-26] MEDS ORDERED: IPRA17I INH (10:12)
[2017-07-26] MEDS ORDERED: guaiFENesin ER PO (10:12)
[2017-07-26] MEDS ORDERED: AZIT500T2 PO (10:12)
[2017-07-26] MEDS ORDERED: PRED20 PO (10:12)
[2017-07-26] MEDS ORDERED: VENTAER INH (10:12)
--- NOTE | 2017-07-26 10:15 | HHI.DS ---
Discharge Summary Admission Date July 24, 2017 at 11:55 Discharge Date: July 26, 2017 Admitting Diagnosis PNEUMONIA, COPD EXACERBATION (1) COPD exacerbation ICD Code: J44.1 - Chronic obstructive pulmonary disease with (acute) exacerbation Status: Acute (2) Pneumonia ICD Code: J18.9 - Pneumonia, unspecified organism Status: Acute Procedures None Brief History - From Admission 86-year-old male with a past medical history of Alzheimer disease, hypothyroidism was brought to the emergency department for evaluation of worsening symptoms of shortness of breath associated with nonproductive cough times 10 days duration. Per patient's , patient has been congested and was recently treated with Robitussin by his PCP without any improvement. There has been no report of chest pain. And patient does not endorse any febrile episode. Patient is a smoker has been smoking over the past 60+ years. Chest x -ray in the ED reveals right basilar consolidation CBC/BMP: 07/26/17 0525 07/26/17 0525 Significant Findings Laboratory Tests Test 07/24/17 09:45 07/24/17 11:35 07/25/17 05:45 07/26/17 05:25 Red Blood Count 4.28 MIL/MM3 (4.50-5.90) 4.08 MIL/MM3 (4.50-5.90) 4.18 MIL/MM3 (4.50-5.90) Neutrophils (%) (Auto) 71.9 % (16.0-70.0) 94.6 % (16.0-70.0) 93.9 % (16.0-70.0) Eosinophils (%) (Auto) 5.3 % (0.0-4.0) Eosinophils # (Auto) 0.5 TH/MM3 (0-0.4) Blood Urea Nitrogen 23 MG/DL (7-18) 27 MG/DL (7-18) 27 MG/DL (7-18) Random Glucose 111 MG/DL (74-106) 200 MG/DL (74-106) 119 MG/DL (74-106) Albumin 3.0 GM/DL (3.4-5.0) 2.8 GM/DL (3.4-5.0) Estimat Glomerular Filtration Rate 52 ML/MIN (>89) 44 ML/MIN (>89) 57 ML/MIN (>89) Troponin I LESS THAN 0.02 NG/ML White Blood Count 16.5 TH/MM3 (4.0-11.0) 17.3 TH/MM3 (4.0-11.0) Hemoglobin 12.6 GM/DL (13.0-17.0) 12.8 GM/DL (13.0-17.0) Hematocrit 38.0 % (39.0-51.0) Lymphocytes (%) (Auto) 2.9 % (9.0-44.0) 2.6 % (9.0-44.0) Neutrophils # (Auto) 15.6 TH/MM3 (1.8-7.7) 16.2 TH/MM3 (1.8-7.7) Lymphocytes # (Auto) 0.5 TH/MM3 (1.0-4.8) 0.5 TH/MM3 (1.0-4.8) Creatinine 1.50 MG/DL (0.60-1.30) Total Protein 6.3 GM/DL (6.4-8.2) Calcium Level 8.4 MG/DL (8.5-10.1) 8.1 MG/DL (8.5-10.1) Aspartate Amino Transf (AST/SGOT) 10 U/L (15-37) Chloride Level 109 MEQ/L (98-107) Imaging Last Impressions Chest X-Ray 07/24/17 0936 Signed Impressions: CONCLUSION: Right basilar consolidation. Treatment and follow-up to resolution. PE at Discharge GENERAL: SKIN: Warm and dry. wound to left sided back covered with dressing HEAD: Normocephalic. EYES: No scleral icterus. No injection or drainage. NECK: Supple, trachea midline. No JVD or lymphadenopathy. CARDIOVASCULAR: Regular rate and rhythm without murmurs, gallops, or rubs. RESPIRATORY: Breath sounds decrease bilaterally. No accessory muscle use. GASTROINTESTINAL: Abdomen soft, non-tender, nondistended. MUSCULOSKELETAL: No cyanosis, or edema. BACK: Nontender without obvious deformity. No CVA tenderness. Hospital Course Patient was admitted secondary to COPD exacerbation for which she was started on Solu-Medrol, bronchodilator, Symbicort, evaluate and Spiriva with significant improvement of respiratory symptoms. He was also treated for community-acquired pneumonia monitoring of vitals. Physical therapy was consulted. DVT and GI prophylaxis were provided. Patient's conditions improved and prior to discharge he was switched to p.o. prednisone. Pt Condition on Discharge: Good Discharge Disposition: Discharge to SNF Discharge Time: > 30 minutes Discharge Instructions DIET: Follow Instructions for: Heart Healthy Diet Activities you can perform: Regular-No Restrictions Follow up Referrals: PCP Follow-up - 2-3 Days New Medications: Albuterol 18 GM Inh (Ventolin Hfa 18 GM Inh) 90 Mcg/Act Aer 2 PUFF INH Q4-6H PRN for SHORTNESS OF BREATH, #1 INHALER 0 Refills Azithromycin (Azithromycin) 500 Mg Tab 500 MG PO DAILY for Infection, #5 TAB 0 Refills Ipratropium HFA 12.9 GM Inh (Atrovent HFA 12.9 GM Inh) 17 Mcg/Actuation Aer 2 PUFF INH QID for Breathing Treatment, #1 INHALER 0 Refills Prednisone (Prednisone) 20 Mg Tab 20 MG PO DAILY for Breathing Treatment, #7 TAB 0 Refills Tiotropium Inh (Spiriva Handihaler) 18 Mcg Cap 18 MCG INH DAILY for Breathing Treatment, #30 CAP 3 Refills 1 capsule = 18 mcg [Budeson-Formot 160-4.5 Mcg Inh] () 60 PUFF AERO 2 PUFF INH Q12HR for Breathing Treatment, #1 3 Refills [guaiFENesin ER] () 600 MG TABCR 600 MG PO BID for Breathing Treatment, #20 Continued Medications: Levothyroxine (Levothyroxine) 25 Mcg Tab Unknown Dose PO DAILY for Thyroid, #30 TAB 0 Refills Kip Lyons MD July 26, 2017 10:15
[2017-07-26] MEDS: SODIUM CHLOR 0.9% 1000 ML INJ 1,000 ML IV SCH (14:41)
[2017-07-26] MEDS ORDERED: ALPRAZolam 0.25 MG TAB PO ONE (15:00)
--- NOTE | 2017-07-26 16:17 | PD.WCN.NOT ---
Wound Consult Description: Wound consult ordered by for wound management. Communicated with: Leatha [facility], Recommendation: 1. Reposition patient every 2 hours for comfort and offloading 2. Reinforce teaching to patient not to pick or mess with nose and back lesion.May put small amount of Calazime cream on lesions if patient request. 3. Apply blue tube skin moisturizer to inner buttocks groin area BID or as needed for incontinence. 4. Consult incoming freight clerk if lesions/nodule change in appearance or start draining. Additional Information: Patient was seen today by junior copywriter for wound management of nose and lower back lesions.Patient alert to self only in chair upon writers arrival.Patient noted to have a small black lesion to left side of nare lesion is dry intact with no exudate noted.Lesion to lower left back was visualized by junior copywriter and present same as lesion on nose small black nodule intact dry with no drainage noted.Patient was having periods of irritation with staff in which he pulled male condom cath off and attempted to hand it to junior copywriter.Waist Presser was unable to visulized inner buttocks/sacral area due to patient agitation.Per CURT Zhang no open areas noted just a little red.Patient would need to be seen by incoming freight clerk for further lesion/nodule orders.Patient repositioned in chair and brought into nurses station for close monitoring upon writers departure. Gaston Samayoa [facility] July 26, 2017 16:17
[2017-07-26] MEDS: ALPRAZolam 1 MG TAB PO PRN (20:09)
[2017-07-27] VITALS (7 sets, daily range): BP systolic 117–156; BP diastolic 59–80; PULSE 86–124; RESP 17–20; TEMP 96.5–98.7; O2SAT 93–96
[2017-07-27] MEDS: SODIUM CHLOR 0.9% 1000 ML INJ 1,000 ML IV SCH ×2 (04:36→16:58)
[2017-07-27] MEDS: SODIUM CHLORIDE 0.9% FLUSH 10 ML FLUSH IV FLUSH PRN (06:15)
[2017-07-27] MEDS: RESP: ALBUTEROL 2.5 MG/IPRATROPIUM 0.5 MG NEB (SCH) NEB ×4 (07:34→19:23)
[2017-07-27] MEDS: BUDESONIDE-FORMOTEROL 160/4.5 MCG INHALER INH SCH ×2 (07:47→20:40)
[2017-07-27] MEDS: guaiFENesin E.R. 600 MG TAB PO SCH ×2 (07:47→20:39)
[2017-07-27] MEDS: ALPRAZolam 1 MG TAB PO PRN (07:47)
[2017-07-27] MEDS: SODIUM CHLORIDE 0.9% FLUSH 10 ML FLUSH IV FLUSH SCH ×2 (07:48→20:21)
[2017-07-27] MEDS: AZITHROMYCIN INJ 500 MG in SODIUM CHLOR 0.9% 250 ML INJ 250 ML IV SCH (07:48)
[2017-07-27] MEDS: cefTRIAXone INJ 1,000 MG in SODIUM CHLORIDE 0.9% INJ 100 ML IV SCH (07:48)
[2017-07-27] MEDS: TIOTROPIUM BROMIDE 18 MCG INH INH SCH (09:00)
[2017-07-27] MEDS: methylPREDNISolone SOD SUCC 40 MG/1 ML VIAL IV PUSH SCH (09:11)
--- NOTE | 2017-07-27 10:32 | HHI.PR ---
Subjective Remarks Follow-up COPD exacerbation/pneumonia July 25, 2017-patient seen and examined, reports some improvement of shortness of breath. No acute event overnight. Pleasantly confused. He was up ambulating with assistance of physical therapy today. July 26, 2017-patient seen and examined, he was sitting by the nursing station. Pleasantly confused and no acute event overnight. Currently afebrile. July 27, 2017- patient seen and examined and was resting with restrain to upper extremities Objective Vitals Vital Signs Date Time Temp Pulse Resp B/P (MAP) Pulse Ox O2 Delivery O2 Flow Rate FiO2 07/27/17 08:00 98.2 124 17 152/77 (102) 95 07/27/17 00:00 96.5 86 20 156/80 (105) 95 07/26/17 20:00 96.6 82 20 131/79 (96) 93 07/26/17 19:35 92 21 07/26/17 15:52 97.1 86 18 168/74 (105) 95 07/26/17 11:50 97.1 84 18 131/67 (88) 95 I/O 07/26/17 07/26/17 07/26/17 07/27/17 07/27/17 07/27/17 07:00 15:00 23:00 07:00 15:00 23:00 Intake Total 1284 ml 600 ml 1000 ml 120 ml Output Total 850 ml 2725 ml 200 ml Balance 434 ml -2125 ml 1000 ml -80 ml Intake Oral 240 ml 600 ml 120 ml IV Total 1044 ml 1000 ml Output Urine Total 850 ml 2725 ml 200 ml # Voids 1 # Bowel Movements 0 1 Result Diagram: 07/26/17 0525 07/26/17 0525 Objective Remarks GENERAL: SKIN: Warm and dry. wound to left sided back covered with dressing HEAD: Normocephalic. EYES: No scleral icterus. No injection or drainage. NECK: Supple, trachea midline. No JVD or lymphadenopathy. CARDIOVASCULAR: Regular rate and rhythm without murmurs, gallops, or rubs. RESPIRATORY: Breath sounds decrease bilaterally. No accessory muscle use. GASTROINTESTINAL: Abdomen soft, non-tender, nondistended. MUSCULOSKELETAL: No cyanosis, or edema. BACK: Nontender without obvious deformity. No CVA tenderness. Procedures None A/P Problem List: (1) COPD exacerbation ICD Code: J44.1 - Chronic obstructive pulmonary disease with (acute) exacerbation Status: Acute (2) Pneumonia ICD Code: J18.9 - Pneumonia, unspecified organism Status: Acute Assessment and Plan 86-year-old man with COPD exacerbation-resolved Currently on p.o. prednisone, continue Symbicort, Spiriva, bronchodilator schedule and as needed, Mucinex Continue with antibiotics Maintain oxygen saturation above 88% Community-acquired bacterial pneumonia Chest x-ray noted and reviewed by me with finding of right basilar consolidation S/p Rocephin and azithromycin IV x1 in ED, continue antibiotics Hypothyroidism outpatient medications Leukocytosis Secondary to steroid Acute kidney injury Improved with gentle IV fluid hydration and monitor BUN and creatinine Alzheimer Chronic Ulcerated wound Appreciate input from wound care DVT prophylaxis: Bilateral SCDs Kip Lyons MD July 27, 2017 10:32
[2017-07-28] VITALS: BP 109/67; PULSE 81; RESP 18; TEMP 97.1; O2SAT 92
[2017-07-28 07:28] VITALS: O2SAT 94
[2017-07-28] MEDS: RESP: ALBUTEROL 2.5 MG/IPRATROPIUM 0.5 MG NEB (SCH) NEB ×2 (07:28→11:32)
[2017-07-28] MEDS: AZITHROMYCIN INJ 500 MG in SODIUM CHLOR 0.9% 250 ML INJ 250 ML IV SCH (07:42)
[2017-07-28] MEDS: guaiFENesin E.R. 600 MG TAB PO SCH (07:43)
[2017-07-28] MEDS: BUDESONIDE-FORMOTEROL 160/4.5 MCG INHALER INH SCH (07:50)
[2017-07-28] MEDS: SODIUM CHLORIDE 0.9% FLUSH 10 ML FLUSH IV FLUSH SCH (07:51)
[2017-07-28 08:00] VITALS: BP 129/64; PULSE 88; RESP 17; TEMP 96.7; O2SAT 95
[2017-07-28 08:19] LABS: AUTOMATED NEUTROPHIL # 13.7 TH/MM3 (1.8-7.7); BASOPHIL # 0.1 TH/MM3 (0-0.2); BASOPHIL % 0.4 % (0.0-2.0); HEMATOCRIT 44.2 % (39.0-51.0); LYMPH % 4.8 % (9.0-44.0); LYMPHOCYTE # 0.8 TH/MM3 (1.0-4.8); MEAN CELL VOLUME 92.4 FL (80.0-100.0); MEAN CORPUSCULAR HEMOGLOBIN 31.4 PG (27.0-34.0); MEAN CORPUSCULAR HGB CONC 33.9 % (32.0-36.0); MONO % 7.2 % (0.0-8.0); MONOCYTE # 1.1 TH/MM3 (0-0.9); NEUT % 87.6 % (16.0-70.0); PLATELET COUNT 299 TH/MM3 (150-450); RED BLOOD COUNT 4.79 MIL/MM3 (4.50-5.90); RED CELL DISTRIBUTION WIDTH 14.1 % (11.6-17.2); WHITE BLOOD COUNT 15.7 TH/MM3 (4.0-11.0)
[2017-07-28 08:27] LABS: CALCIUM 8.1 MG/DL (8.5-10.1)
[2017-07-28 08:28] LABS: BICARBONATE 29.9 MEQ/L (21.0-32.0)
[2017-07-28 08:31] LABS: CREATININE 1.2 MG/DL (0.60-1.30)
[2017-07-28] MEDS ORDERED: predniSONE 20 MG TAB PO SCH (09:00)
[2017-07-28] MEDS: cefTRIAXone INJ 1,000 MG in SODIUM CHLORIDE 0.9% INJ 100 ML IV SCH (09:12)
[2017-07-28] MEDS: TIOTROPIUM BROMIDE 18 MCG INH INH SCH (09:12)
--- NOTE | 2017-07-28 09:16 | HHI.PR ---
Subjective Remarks Follow-up COPD exacerbation/pneumonia July 25, 2017-patient seen and examined, reports some improvement of shortness of breath. No acute event overnight. Pleasantly confused. He was up ambulating with assistance of physical therapy today. July 26, 2017-patient seen and examined, he was sitting by the nursing station. Pleasantly confused and no acute event overnight. Currently afebrile. July 27, 2017- patient seen and examined and was resting with restrain to upper extremities July 28, 2017-patient seen and examined, still in upper extremity restraints. Some confusions otherwise stable and currently afebrile Objective Vitals Vital Signs Date Time Temp Pulse Resp B/P (MAP) Pulse Ox O2 Delivery O2 Flow Rate FiO2 07/28/17 08:00 96.7 88 17 129/64 (85) 95 07/28/17 07:28 94 Nasal Cannula 2.00 07/28/17 00:00 97.1 81 18 109/67 (81) 92 07/27/17 20:00 97.4 97 18 126/71 (89) 96 07/27/17 19:25 93 Nasal Cannula 2.00 07/27/17 16:00 98.7 88 20 119/59 (79) 95 07/27/17 12:00 97.4 87 19 117/63 (81) 95 I/O 07/27/17 07/27/17 07/27/17 07/28/17 07/28/17 07/28/17 07:00 15:00 23:00 07:00 15:00 23:00 Intake Total 1000 ml 120 ml 1058 ml 480 ml Output Total 200 ml 800 ml Balance 1000 ml -80 ml 258 ml 480 ml Intake Oral 120 ml 20 ml 480 ml IV Total 1000 ml 1038 ml Output Urine Total 200 ml 800 ml # Voids 4 # Bowel Movements 1 1 Result Diagram: 07/28/17 0810 07/28/17 0810 Imaging Last Impressions Chest X-Ray 07/24/17 0936 Signed Impressions: CONCLUSION: Right basilar consolidation. Treatment and follow-up to resolution. Objective Remarks GENERAL: NAD SKIN: Warm and dry. HEAD: Normocephalic. EYES: No scleral icterus. No injection or drainage. NECK: Supple, trachea midline. No JVD or lymphadenopathy. CARDIOVASCULAR: Regular rate and rhythm without murmurs, gallops, or rubs. RESPIRATORY: Breath sounds decrease bilaterally. No accessory muscle use. GASTROINTESTINAL: Abdomen soft, non-tender, nondistended. MUSCULOSKELETAL: No cyanosis, or edema. BACK: Nontender without obvious deformity. No CVA tenderness. Procedures None A/P Problem List: (1) COPD exacerbation ICD Code: J44.1 - Chronic obstructive pulmonary disease with (acute) exacerbation Status: Acute (2) Pneumonia ICD Code: J18.9 - Pneumonia, unspecified organism Status: Acute Assessment and Plan 86-year-old man with COPD exacerbation-resolved Currently on p.o. prednisone, continue Symbicort, Spiriva, bronchodilator schedule and as needed, Mucinex Continue with antibiotics Maintain oxygen saturation above 88% Community-acquired bacterial pneumonia Chest x-ray noted and reviewed by me with finding of right basilar consolidation d/c Rocephin and continue azithromycin Hypothyroidism outpatient medications Leukocytosis Secondary to steroid Acute kidney injury Improved with gentle IV fluid hydration and monitor BUN and creatinine Alzheimer Chronic Ulcerated wound Appreciate input from wound care DVT prophylaxis: Bilateral SCDs Kip Lyons MD Jul 28, 2017 09:16
--- NOTE | 2017-07-28 09:17 | HHI.FF ---
Face to Face Verification Diagnosis: (1) COPD exacerbation (2) Pneumonia Physical Therapy Order: Evaluate and Treat Home Health Nursing Order: Signs/symptoms of disease process I have seen patient Ced Pena on 07/28/17. My clinical findings support the need for the requested home health care services because: Deconditioned w/ increased weakness I certify that my clinical findings support that this patient is homebound because: Hx COPD- exertion dyspnea/weakness Unsteady gait/balance Kip Lyons MD Jul 28, 2017 09:17
[2017-07-28] MEDS: SODIUM CHLOR 0.9% 1000 ML INJ 1,000 ML IV SCH (09:45)
[2017-07-28 12:00] VITALS: BP 138/74; PULSE 73; RESP 18; TEMP 96.9; O2SAT 94
[2017-07-28] MEDS ORDERED: GETGO ROLLING W1 MI1 (13:10)
[2017-07-28] MEDS ORDERED: ALPR.25 PO (13:10)
== END 2017-07-28 12:22 | disposition home health service (06) | DRG 190 ==
LOC: PHED 08:57 → PHEDA 11:55 → PH3B 12:46
PROVIDERS: ADMIT Hospitalist; ATTEND Hospitalist
DX: J44.1 Chronic obstructive pulmonary disease with (acute) exacerbation (principal); J15.9 Unspecified bacterial pneumonia; N17.9 Acute kidney failure, unspecified; G30.9 Alzheimer's disease, unspecified; F02.80 Dementia in other diseases classified elsewhere, unspecified severity, without behavioral disturbance, psychotic disturbance, mood disturbance, and anxiety; J44.0 Chronic obstructive pulmonary disease with (acute) lower respiratory infection; L98.429 Non-pressure chronic ulcer of back with unspecified severity; E03.9 Hypothyroidism, unspecified; Z66 Do not resuscitate; D72.829 Elevated white blood cell count, unspecified; T38.0X5A Adverse effect of glucocorticoids and synthetic analogues, initial encounter; F17.210 Nicotine dependence, cigarettes, uncomplicated; Z85.828 Personal history of other malignant neoplasm of skin
CPT/HCPCS: 71045; 80048; 80053; 81001; 83880; 84484; 85025; 85610; 85730; 87040; 93005; 94640; 94664; 96365; 96367; 96375; J0456; J0696; J2405; J2920; J2930; J7030; J7050; J7512

== ENCOUNTER 2017-07-30 10:57 | Inpatient (IN) | payer OTHER, MEDICARE ==
[~2017-07-30] VITALS: Ht 180.3 cm; Wt 59.0 kg
[2017-07-30] VITALS (7 sets, daily range): BP systolic 107–144; BP diastolic 60–88; PULSE 61–82; RESP 16–22; TEMP 96.9–98.2; O2SAT 88–95
[~2017-07-30 10:57] MED LIST changes: +ALPR.25 PO; +AZIT500T2 PO; +Budeson-Formot 160-4.5 Mcg Inh INH; +GETGO ROLLING W1 MI1; +IPRA17I INH; +LEVO25TA4 PO; +PRED20 PO; +SPIRCAP INH; +VENTAER INH; -VITA100064 PO; +guaiFENesin ER PO
[2017-07-30 11:17] LABS: AUTOMATED NEUTROPHIL # 13.1 TH/MM3 (1.8-7.7); BASOPHIL # 0.3 TH/MM3 (0-0.2); BASOPHIL % 2.1 % (0.0-2.0); EOSINOPHIL % 0.2 % (0.0-4.0); HEMATOCRIT 41.9 % (39.0-51.0); HEMOGLOBIN 13.8 GM/DL (13.0-17.0); LYMPHOCYTE # 1.1 TH/MM3 (1.0-4.8); MEAN CELL VOLUME 92.8 FL (80.0-100.0); MEAN CORPUSCULAR HEMOGLOBIN 30.5 PG (27.0-34.0); MEAN CORPUSCULAR HGB CONC 32.8 % (32.0-36.0); MEAN PLATELET VOLUME 8.6 FL (7.0-11.0); MONO % 7.3 % (0.0-8.0); MONOCYTE # 1.1 TH/MM3 (0-0.9); NEUT % 83.4 % (16.0-70.0); PLATELET COUNT 232 TH/MM3 (150-450); RED BLOOD COUNT 4.52 MIL/MM3 (4.50-5.90); RED CELL DISTRIBUTION WIDTH 13.3 % (11.6-17.2); WHITE BLOOD COUNT 15.6 TH/MM3 (4.0-11.0)
--- NOTE | 2017-07-30 11:26 | PD ---
HPI Chief Complaint: Chest Pain Time Seen by Provider: 11:18 Travel History International Travel<30 days: No Contact w/Intl Traveler<30days: No Traveled to known affect area: No History of Present Illness HPI 86yo M with PMH of alzheimer's and hypothyroidism was brought in by his because she said he had burning midsternal chest pain yesterday and again this morning. Pt is AAOx2 and is denying any chest pain or sob. Denies any fever, n /v, abdominal pain, focal weakness or numbness. Pt was just admitted 07/24/17-07/28/17 for COPD exacerbation and pneumonia. EKG showed new ST elevation V3, V4 but pt's said she does not want cardiac cath. Said he is DNR and DNI. said pt has not been eating or drinking since he was discharged from the hospital. She is convince it is because it hurts to eat. 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 ) Cardiovascular Problems: Yes COPD: Yes Endocrine: Yes Genitourinary: No Immune Disorder: No Musculoskeletal: No Neurologic: No Reproductive: No Respiratory: Yes Thyroid Disease: Yes Tetanus Vaccination: < 5 Years Influenza Vaccination: No Past Surgical History AICD: No Arteriovenous Shunt: No Insulin Pump: No Joint Replacement: No Pacemaker: No Social History Alcohol Use: No (Quit years ago per pt) Tobacco Use: Yes (1PPD) Substance Use: No Allergies-Medications (Allergen,Severity, Reaction): Coded Allergies: No Known Allergies (Verified Allergy, Unknown, 07/24/17) Reported Meds & Prescriptions Reported Meds & Active Scripts Active Xanax (Alprazolam) 0.25 Mg Tab 0.25 Mg PO Q6H PRN 3 Days Walker Rolling/GetGo (Device) 1 Mis Mis Ea .XX DIRECTED Prednisone 20 Mg Tab 20 Mg PO DAILY Atrovent HFA 12.9 GM Inh (Ipratropium [place]) 17 Mcg/Actuation Aer 2 Puff INH QID Ventolin Hfa 18 GM Inh (Albuterol Sulfate) 90 Mcg/Act Aer 2 Puff INH Q4-6H PRN Azithromycin 500 Mg Tab 500 Mg PO DAILY [guaiFENesin ER] 600 MG Tabcr 600 Mg PO BID Reported Levothyroxine (Levothyroxine Sodium) 25 Mcg Tab Unknown Dose PO DAILY Review of Systems Except as stated in HPI: all other systems reviewed are Neg Physical Exam Narrative GENERAL: 86yo M in mild distress. SKIN: Focused skin assessment warm/dry. HEAD: Atraumatic. Normocephalic. EYES: Pupils equal and round. No scleral icterus. No injection or drainage. ENT: No nasal bleeding or discharge. Mucous membranes pink and moist. NECK: Trachea midline. No JVD. CARDIOVASCULAR: Regular rate and rhythm. No murmur appreciated. RESPIRATORY: No accessory muscle use. Clear to auscultation. Breath sounds equal bilaterally. GASTROINTESTINAL: Abdomen soft, non-tender, nondistended. MUSCULOSKELETAL: No obvious deformities. No clubbing. No cyanosis. No edema. NEUROLOGICAL: AAOx2. No obvious cranial nerve deficits. Motor grossly within normal limits. Normal speech. PSYCHIATRIC: Appropriate mood and affect; insight and judgment normal. Data Data Last Documented VS Vital Signs Date Time Temp Pulse Resp B/P (MAP) Pulse Ox O2 Delivery O2 Flow Rate FiO2 07/30/17 12:45 72 22 128/79 (95) 94 Nasal Cannula 2.00 07/30/17 11:00 98.2 Orders Orders Electrocardiogram (07/30/17 11:01) Complete Blood Count With Diff (07/30/17 11:01) Basic Metabolic Panel (Bmp) (07/30/17 11:01) Ckmb (Isoenzyme) Profile (07/30/17 11:01) Troponin I (07/30/17 11:01) Chest, Single Ap (07/30/17 11:01) Iv Access Insert/Monitor (07/30/17 11:01) Ecg Monitoring (07/30/17 11:01) Oxygen Administration (07/30/17 11:01) Oximetry (07/30/17 11:01) Act Partial Throm Time (Ptt) (07/30/17 11:01) Prothrombin Time / Inr (Pt) (07/30/17 11:01) CKMB (07/30/17 11:05) CKMB% (07/30/17 11:05) Aspirin (Aspirin) (07/30/17 12:15) Pantoprazole (Protonix) (07/30/17 12:15) Metoprolol Tartrate (Lopressor) (07/30/17 12:15) Sodium Chlor 0.9% 1000 Ml Inj (Ns 1000 M (07/30/17 13:00) Admit Order (Ed Use Only) (07/30/17 13:28) Labs Laboratory Tests Test 07/30/17 11:05 White Blood Count 15.6 TH/MM3 Red Blood Count 4.52 MIL/MM3 Hemoglobin 13.8 GM/DL Hematocrit 41.9 % Mean Corpuscular Volume 92.8 FL Mean Corpuscular Hemoglobin 30.5 PG Mean Corpuscular Hemoglobin Concent 32.8 % Red Cell Distribution Width 13.3 % Platelet Count 232 TH/MM3 Mean Platelet Volume 8.6 FL Neutrophils (%) (Auto) 83.4 % Lymphocytes (%) (Auto) 7.0 % Monocytes (%) (Auto) 7.3 % Eosinophils (%) (Auto) 0.2 % Basophils (%) (Auto) 2.1 % Neutrophils # (Auto) 13.1 TH/MM3 Lymphocytes # (Auto) 1.1 TH/MM3 Monocytes # (Auto) 1.1 TH/MM3 Eosinophils # (Auto) 0.0 TH/MM3 Basophils # (Auto) 0.3 TH/MM3 CBC Comment AUTO DIFF Differential Comment AUTO DIFF CONFIRMED Prothrombin Time 12.0 SEC Prothromb Time International Ratio 1.2 RATIO Activated Partial Thromboplast Time 25.0 SEC Blood Urea Nitrogen 35 MG/DL Creatinine 1.20 MG/DL Random Glucose 120 MG/DL Calcium Level 8.4 MG/DL Sodium Level 143 MEQ/L Potassium Level 3.9 MEQ/L Chloride Level 107 MEQ/L Carbon Dioxide Level 29.5 MEQ/L Anion Gap 7 MEQ/L Estimat Glomerular Filtration Rate 57 ML/MIN Total Creatine Kinase 122 U/L Creatine Kinase MB 3.0 NG/ML Troponin I 0.29 NG/ML [facility] Medical Decision Making Medical Screen Exam Complete: Yes Emergency Medical Condition: Yes Interpretation(s) EKG: NSR 87bpm. ST elevation in V3, V4 that is new from prior in 07/24/17. TWI V6 that is new. This is a STEMI but STEMI alert was not called because pt has dementia and who is next of kin does not want cardiac cath. Differential Diagnosis STEMI vs. GERD vs. dehydration vs. achalasia Narrative Course 86yo M with c/o burning in his chest yesterday and today was found to have a STEMI. However, is adamant about not doing a cardiac cath and understands the risks including . I discussed with stock worker and deliverer Dr. Hoffman and he recommends aspirin, metoprolol and pantoprazole. Labs reviewed, leukocytosis at 15.6, this is unchanged from 07/28/17. H/H normal. BUN/creatinine elevated at 35/1.20. This is worst than 2 days ago. Troponin is elevated at 0.29 consistent with myocardial infarction. CXR showed new right sided pleural effusion. Progressive airspace density the right lower lobe. Will cover with antibiotics to cover hospital acquired pneumonia since pt was just here. Pt noted to have some oral thrush, likely from steroids so given nystatin liquid swish and swallow. This may explain why it is painful to eat and drink. Pt is DNR/DNI and said he has the paperwork at his primary's but she also signed it here. Discussed with Dr. Garcia and accepted to her service. Critical Care Narrative Aggregate critical care time was 50 minutes. Time to perform other separately billable procedures was not included in the critical care time. My time did not include minutes spent treating any other patients simultaneously or on activities that did not directly contribute to the patient's treatment. The services I provided to this patient were to treat and/or prevent clinically significant deterioration that could result in: cardiovascular collapse or . I provided critical care services requiring my management, as noted below: Chart data review, documentation time, medication orders and management, vital sign assessments/reviewing monitor data, ordering and reviewing lab tests, ordering and interpreting/reviewing x-rays and diagnostic studies, care of the patient and discussion of the patient with the admitting physicians. Diagnosis Primary Impression: Dehydration Additional Impressions: STEMI (ST elevation myocardial infarction) Qualified Codes: I21.3 - ST elevation (STEMI) myocardial infarction of unspecified site Pneumonia Qualified Codes: J18.1 - Lobar pneumonia, unspecified organism Admitting Information Admitting Physician Requests: it Ro Patterson DO Jul 30, 2017 11:26
[2017-07-30 11:29] LABS: INTERNATIONAL NORMALIZED RATIO 1.2 RATIO
[2017-07-30 11:32] LABS: CHLORIDE 107 MEQ/L (98-107); SODIUM (NA) 143 MEQ/L (136-145)
[2017-07-30 11:35] LABS: BICARBONATE 29.5 MEQ/L (21.0-32.0); BLOOD UREA NITROGEN 35 MG/DL (7-18); CALCIUM 8.4 MG/DL (8.5-10.1)
[2017-07-30 11:37] LABS: GLUCOSE,RANDOM 120 MG/DL (74-106)
[2017-07-30 11:39] LABS: GLOMERULAR FILTRATION RATE 57 ML/MIN (>89)
--- NOTE | 2017-07-30 11:39 | RADRPT ---
EXAM DATE: 07/30/2017 11:33 AM EDT AGE/SEX: 86 years / Male INDICATIONS: Chest pain per caregiver CLINICAL DATA: This is the patient's initial encounter. Patient reports that signs and symptoms have been present for 1 day and indicates a pain score of Nonresponsive. MEDICAL/SURGICAL HISTORY: Chronic obstructive pulmonary disease. None. COMPARISON: [facility], CHEST SINGLE AP, 07/24/2017. . FINDINGS: AP upright portable view of the chest demonstrates new blunting of the right costophrenic angle and p rogressive airspace density identified within the right lower lobe. Given the tubular appearance some of this may represent bronchiectasis. The lung apices are clear. Heart size is normal with stable mi ld tortuosity of the thoracic aorta. Pulmonary vasculature is normal. Osseous structures appear intac t. CONCLUSION: New right-sided small pleural effusion. Progressive airspace density overlying the right lower lobe. Tubular appearance suggests bronchiectasis. Consider further evaluation of the chest with CT. Electronically signed by: Debra Skelton MD 07/30/2017 11:38 AM EDT
[2017-07-30 11:43] LABS: TROPONIN I 0.29 NG/ML (0.02-0.05)
[2017-07-30] MEDS ORDERED: ASPIRIN 325 MG TAB PO ONE (12:15)
[2017-07-30] MEDS ORDERED: METOPROLOL TARTRATE 25 MG TAB PO ONE (12:15)
[2017-07-30] MEDS ORDERED: PANTOPRAZOLE SOD 40 MG DELAYED RELEASE TAB PO ONE (12:15)
[2017-07-30] MEDS ORDERED: SODIUM CHLOR 0.9% 1000 ML INJ 1,000 ML IV ONE (13:00)
[2017-07-30] MEDS ORDERED: NYSTATIN SUSP 500,000 U/5 ML CUP SWISH-SWAL ONE (13:45)
[2017-07-30] MEDS ORDERED: PIPERACIL-TAZO 2.25 GM PREMIX 50 ML IV ONE (14:00)
[2017-07-30] MEDS ORDERED: VANCOMYCIN INJ 850 MG in SODIUM CHLOR 0.9% 250 ML INJ 250 ML IV ONE (14:00)
[2017-07-30] MEDS ORDERED: ACETAMINOPHEN 325 MG TAB PO PRN (14:00)
[2017-07-30] MEDS ORDERED: BISACODYL 10 MG SUPP RECTAL PRN (14:00)
[2017-07-30] MEDS ORDERED: MAGNESIUM HYDROXIDE SUSP 30 ML CUP PO PRN (14:00)
[2017-07-30] MEDS ORDERED: ONDANSETRON HCL 4 MG/2 ML VIAL IVP PRN (14:00)
[2017-07-30] MEDS ORDERED: NALOXONE HCL 0.4 MG/ML AMP IV PUSH PRN (14:00)
[2017-07-30] MEDS ORDERED: SENNOSIDES 8.6 MG TAB PO PRN (14:00)
[2017-07-30] MEDS: SODIUM CHLOR 0.45% 1000 ML INJ 1,000 ML IV SCH (15:06)
--- NOTE | 2017-07-30 15:53 | HHI.HP ---
[facility] Vince Vuong MD Admission Diagnosis Dehydration, STEMI, pneumonia Diagnoses: (1) STEMI (ST elevation myocardial infarction) (2) Pneumonia (3) Dehydration Chief Complaint: Chest pain Travel History International Travel<30 Days: No Contact w/Intl Traveler <30 Da: No Traveled to Known Affected Are: No Sepsis Criteria SIRS Criteria (2 or more): RR > 20 or PaCO2 < 32, WBC > 48355, < 4000 or > 10 % bands Sepsis Criteria (SIRS+source): Infect source susp/known Criteria Outcome: Meets sepsis criteria History of Present Illness This is an 86-year-old male patient with a known medical history of Alzheimer's disease and hypothyroidism who presented to the ED accompanied by with complaints of midsternal chest pain. Per reports the pain started yesterday and eventually went away and then recurred this morning. At the time of assessment patient is lying in bed comfortably with no apparent distress. Patient is pleasantly confused with a history of Alzheimer's disease. Patient is unable to contribute to any of the medical history or recent events leading up to his hospitalization. is not at bedside at the time. It should be noted that patient was recently admitted between 07/24/17 to 07/28/17 for COPD exacerbation and pneumonia. Patient was stabilized with IV steroids and antibiotics and sent home with [facility]. Review of Systems ROS Limitations: Clinical Condition (History of Alzheimer's disease), Poor Historian Past Family Social History Past Medical History COPD Alzheimer's disease Thyroid disease History of skin cancer to back and face Past Surgical History Skin cancer from right sabianism Reported Medications Active Xanax (Alprazolam) 0.25 Mg Tab 0.25 Mg PO Q6H PRN 3 Days Walker Rolling/GetGo (Device) 1 Mis Mis Ea .XX DIRECTED Prednisone 20 Mg Tab 20 Mg PO DAILY Atrovent HFA 12.9 GM Inh (Ipratropium [place]) 17 Mcg/Actuation Aer 2 Puff INH QID Ventolin Hfa 18 GM Inh (Albuterol Sulfate) 90 Mcg/Act Aer 2 Puff INH Q4-6H PRN Azithromycin 500 Mg Tab 500 Mg PO DAILY [guaiFENesin ER] 600 MG Tabcr 600 Mg PO BID Reported Levothyroxine (Levothyroxine Sodium) 25 Mcg Tab Unknown Dose PO DAILY Allergies: Coded Allergies: No Known Allergies (Verified Allergy, Unknown, 07/24/17) Active Ordered Medications Current Medications Medications (Trade) Dose Ordered Sig/Carmen Route Start Time Stop Time Status Last Admin Sodium Chloride 1,000 ml @ 75 mls/hr [id number] IV 07/30/17 13:53 07/30/17 15:06 (NS Flush) 2 ml UNSCH PRN IV FLUSH 07/30/17 14:00 (NS Flush) 2 ml BID IV FLUSH 07/30/17 21:00 (Tylenol) 650 mg Q4H PRN PO 07/30/17 14:00 (Zofran Inj) 4 mg Q6H PRN IVP 07/30/17 14:00 (Narcan Inj) 0.4 mg UNSCH PRN IV PUSH 07/30/17 14:00 (Shraddha-Colace) 1 tab BID PO 07/30/17 21:00 (Milk Of Magnesia Liq) 30 ml Q12H PRN PO 07/30/17 14:00 (Senokot) 17.2 mg Q12H PRN PO 07/30/17 14:00 (Dulcolax Supp) 10 mg DAILY PRN RECTAL 07/30/17 14:00 (Heparin Inj) 5,000 units Q12HR SQ 07/30/17 21:00 Vancomycin HCl 1000 mg/Sodium Chloride 250 ml @ 250 mls/hr Q24H IV 07/31/17 14:00 UNV Piperacillin Sod/ Tazobactam Sod 100 ml @ 200 mls/hr Q6HR IV 07/30/17 18:00 Family History Due to patient advanced age, family history not relevant for this case Social History Denies any alcohol use or illicit drug use. States he recently quit smoking. Physical Exam Vital Signs Vital Signs Date Time Temp Pulse Resp B/P (MAP) Pulse Ox O2 Delivery O2 Flow Rate FiO2 07/30/17 14:43 97.2 68 18 107/60 (76) 94 07/30/17 14:00 07/30/17 12:45 72 22 128/79 (95) 94 Nasal Cannula 2.00 07/30/17 11:16 88 Nasal Cannula 2.00 07/30/17 11:16 94 Nasal Cannula 2.00 07/30/17 11:13 22 88 Room Air 07/30/17 11:00 98.2 82 20 144/88 (106) 88 Physical Exam GENERAL: Well-developed, well-nourished elderly male patient in [facility]. Pleasantly confused underlying Alzheimer's SKIN: Warm and dry. No rash. HEAD: Normocephalic. Atraumatic. EYES: Pupils equal and round. No scleral icterus. No injection or drainage. ENT: No nasal bleeding or discharge. Mucous membranes pink and moist. Thrush noted on tongue NECK: Supple. Trachea midline. CARDIOVASCULAR: Regular rate and rhythm. S1, S2 noted. No murmur appreciated. RESPIRATORY: No accessory muscle use. Clear to auscultation. Breath sounds equal bilaterally. GASTROINTESTINAL: Abdomen soft, non-tender, nondistended. Normoactive bowel sounds x4. MUSCULOSKELETAL: No obvious deformities. Extremities without clubbing, cyanosis , or edema. NEUROLOGICAL: Awake and alert. No obvious cranial nerve deficits. Motor grossly within normal limits. 5/5 muscle strength in bilateral upper and lower extremities. Normal speech. Laboratory Laboratory Tests Test 07/30/17 11:05 White Blood Count 15.6 Red Blood Count 4.52 Hemoglobin 13.8 Hematocrit 41.9 Mean Corpuscular Volume 92.8 Mean Corpuscular Hemoglobin 30.5 Mean Corpuscular Hemoglobin Concent 32.8 Red Cell Distribution Width 13.3 Platelet Count 232 Mean Platelet Volume 8.6 Neutrophils (%) (Auto) 83.4 Lymphocytes (%) (Auto) 7.0 Monocytes (%) (Auto) 7.3 Eosinophils (%) (Auto) 0.2 Basophils (%) (Auto) 2.1 Neutrophils # (Auto) 13.1 Lymphocytes # (Auto) 1.1 Monocytes # (Auto) 1.1 Eosinophils # (Auto) 0.0 Basophils # (Auto) 0.3 CBC Comment AUTO DIFF Differential Comment AUTO DIFF CONFIRMED Prothrombin Time 12.0 Prothromb Time International Ratio 1.2 Activated Partial Thromboplast Time 25.0 Blood Urea Nitrogen 35 Creatinine 1.20 Random Glucose 120 Calcium Level 8.4 Sodium Level 143 Potassium Level 3.9 Chloride Level 107 Carbon Dioxide Level 29.5 Anion Gap 7 Estimat Glomerular Filtration Rate 57 Total Creatine Kinase 122 Creatine Kinase MB 3.0 Troponin I 0.29 Result Diagram: 07/30/17 1105 07/30/17 1105 Imaging Last Impressions Chest X-Ray 07/30/17 1101 Signed Impressions: CONCLUSION: New right-sided small pleural effusion. Progressive airspace density overlying the right lower lobe. Tubular appearance suggests bronchiectasis. Consider furt her evaluation of the chest with CT. Septic Shock Reassessment Septic shock perfusion: reassessment completed Caprini VTE Risk Assessment Caprini VTE Risk Assessment: Mod/High Risk (score >= 2) Caprini Risk Assessment Model Point Value = 1 Point Value = 2 Point Value = 3 Point Value = 5 Age 41-60 Minor surgery BMI > 25 kg/m2 Swollen legs Varicose veins or History of unexplained or recurrent spontaneous Oral contraceptives or hormone replacement Sepsis (< 1 month) Serious lung disease, including pneumonia (< 1 month) Abnormal pulmonary function Acute myocardial infarction Congestive heart failure (< 1 month) History of inflammatory bowel disease Medical patient at bed rest Age 61-74 Arthroscopic surgery Major open surgery (> 45 min) Laparoscopic surgery (> 45 min) Malignancy Confined to bed (> 72 hours) Immobilizing plaster cast Central venous access Age >= 75 History of VTE Family history of VTE Factor V Leiden Prothrombin [id number] Lupus anticoagulant Anticardiolipin antibodies Elevated serum homocysteine Heparin-induced thrombocytopenia Other congenital or acquired thrombophilia Stroke (< 1 month) Elective arthroplasty Hip, pelvis, or leg fracture Acute spinal cord injury (< 1 month) Prophylaxis Regimen Total Risk Factor Score Risk Level Prophylaxis Regimen 0-1 Low Early ambulation 2 Moderate Order ONE of the following: *Sequential Compression Device (SCD) *Heparin 5000 units SQ BID 3-4 Higher Order ONE of the following medications: *Heparin 5000 units SQ TID *Enoxaparin/Lovenox 40 mg SQ daily (WT < 150 kg, CrCl > 30 mL/min) *Enoxaparin/Lovenox 30 mg SQ daily (WT < 150 kg, CrCl > 10-29 mL/min) *Enoxaparin/Lovenox 30 mg SQ BID (WT < 150 kg, CrCl > 30 mL/min) AND/OR *Sequential Compression Device (SCD) 5 or more Highest Order ONE of the following medications: *Heparin 5000 units SQ TID (Preferred with Epidurals) *Enoxaparin/Lovenox 40 mg SQ daily (WT < 150 kg, CrCl > 30 mL/min) *Enoxaparin/Lovenox 30 mg SQ daily (WT < 150 kg, CrCl > 10-29 mL/min) *Enoxaparin/Lovenox 30 mg SQ BID (WT < 150 kg, CrCl > 30 mL/min) AND *Sequential Compression Device (SCD) Assessment and Plan Assessment and Plan 86-year-old man with STEMI EKG showing SR with controlled heart rate, ST elevation in V3, V4 that is new from prior in 07/24/17. , YARELY, is refusing any intervention and cardiac cath. Cardiology superintendent institution recommending aspirin, metoprolol and pantoprazole. Continue cardiac telemetry. Monitor for any arrhythmias. Hospital-acquired pneumonia Recently treated for community-acquired bacterial pneumonia Leukocytosis possible secondary to above or likely recent steroid use Chest x-ray reviewed showing new right sided small pleural effusion. Progressive airspace density overlying the right lower lobe. Recommendations for chest CT. Will order and follow. Will continue vancomycin and Zosyn. Gentle hydration, monitor for overload. COPD not in exacerbation Currently on p.o. prednisone, continue Symbicort, Spiriva, bronchodilator schedule and as needed, Mucinex Continue with antibiotics Maintain oxygen saturation above 88% Thrush: Recent antibiotic use. Added nystatin swish and swallow. Hypothyroidism: Continue outpatient medications. Alzheimer: Chronic. Supportive care. DVT prophylaxis: Bilateral SCDs. Heparin. Code status: DNR. Physician Certification 2 Midnight Certification Type: Admission for Inpatient Services Order for Inpatient Services The services are ordered in accordance with Medicare regulations or non- Medicare payer requirements, as applicable. In the case of services not specified as inpatient-only, they are appropriately provided as inpatient services in accordance with the 2-midnight benchmark. Estimated LOS (days): 3 3 days is the estimated time the patient will need to remain in the hospital, assuming treatment plan goals are met and no additional complications. Post-Hospital Plan: Not yet determined Problem Qualifiers (1) STEMI (ST elevation myocardial infarction): Qualified Codes: I21.3 - ST elevation (STEMI) myocardial infarction of unspecified site (2) Pneumonia: Qualified Codes: J18.1 - Lobar pneumonia, unspecified organism Lindsay Wilkinson Jul 30, 2017 15:53
[2017-07-30] MEDS ORDERED: ALBUTEROL SULFATE 90 MCG/ACT HFA 8 GM INHALER INH PRN (16:45)
[2017-07-30] MEDS ORDERED: ALPRAZolam 0.25 MG TAB PO PRN (16:45)
[2017-07-30] MEDS: TIOTROPIUM BROMIDE 18 MCG INH INH SCH (16:54)
[2017-07-30] MEDS: PIPERACIL-TAZO 4.5 GM PREMIX 100 ML IV SCH ×2 (16:55→23:24)
[2017-07-30] MEDS: NYSTATIN SUSP 500,000 U/5 ML CUP SWISH-SWAL SCH ×2 (16:56→20:11)
[2017-07-30] MEDS ORDERED: PILL SPLITTER OTHER PRN (17:00)
--- NOTE | 2017-07-30 17:19 | EKG ---
Date Performed: 07/30/2017 Time Performed: 11:01:19 PTAGE: 86 years EKG: Sinus rhythm MARKED LEFT AXIS DEVIATION INTRAVENTRICULAR CONDUCTION DELAY ANTEROSEPTAL MYOCARDIAL INFARCTION OF U NDETERMINED AGE THERE IS SLIGHT J-POINT ELEVATION SEEN, ESPECIALLY SEEN IN LEADS V3 AND V4. THIS MAY BE DUE TO PREVIOUS INFARCT ALTHOUGH I CANNOT COMPLETELY EXCLUDE RECURRENT INJURY IN THAT AREA. T-WAVE CHANGES ANTEROLATERALLY WHICH MAY BE DUE TO ISCHEMIA Compared to PREVIOUS TRACING , THE J POINT ELEVATION IN LEADS V3 AND V4 ARE MORE PROMINENT. THE T WAV ES ARE NOW INVERTED ANTEROLATERALLY. PVCS NO LONGER PRESENT. Clinical correlation is recommended PREV IOUS TRACIN07/24/2017 09.04 DOCTOR: Julio Cesar Hebert Interpretating Date/Time 07/30/2017 17:18:07
[2017-07-30 17:25] LABS: TROPONIN I 0.26 NG/ML (0.02-0.05)
[2017-07-30] MEDS ORDERED: IPRATROPIUM BROMIDE 17 MCG/ACT 12.9 GM INHALER INH SCH (18:00)
[2017-07-30 19:33] LABS: BILIRUBIN, URINE NEG (NEG); BLOOD, URINE NEG (NEG); GLUCOSE,URINE NEG (NEG); KETONE, URINE NEG (NEG); NITRITE,URINE NEG (NEG); URINE COLOR YELLOW (YELLW/STRAW); URINE LEUKOCYTE ESTERASE NEG (NEG)
[2017-07-30 19:39] LABS: AMORPHOUS SEDIMENT, URINE FEW; RBC, URINE 0-2 /hpf (0-3); SQUAMOUS EPITHELIAL CELL URINE 0-5 /hpf (0-5); WBC, URINE 0-2 /hpf (0-5)
[2017-07-30] MEDS: guaiFENesin E.R. 600 MG TAB PO SCH (20:11)
[2017-07-30] MEDS: DOCUSATE SODIUM 50 MG/SENNA 8.6 MG TAB PO SCH (20:11)
[2017-07-30] MEDS: METOPROLOL TARTRATE 25 MG TAB PO SCH (20:11)
[2017-07-30] MEDS: HEPARIN SODIUM - SQ 10,000 UNITS/ML VIAL SQ SCH (20:15)
[2017-07-30] MEDS: SODIUM CHLORIDE 0.9% FLUSH 10 ML FLUSH IV FLUSH SCH (20:15)
[2017-07-30 20:22] LABS: TROPONIN I 0.22 NG/ML (0.02-0.05)
[2017-07-31] VITALS (9 sets, daily range): BP systolic 113–129; BP diastolic 60–78; PULSE 55–114; RESP 16–20; TEMP 96–98.2; O2SAT 94–99
[2017-07-31 04:59] LABS: AUTOMATED NEUTROPHIL # 9.1 TH/MM3 (1.8-7.7); EOSINOPHIL # 0.1 TH/MM3 (0-0.4); EOSINOPHIL % 0.5 % (0.0-4.0); HEMATOCRIT 36.3 % (39.0-51.0); HEMOGLOBIN 11.9 GM/DL (13.0-17.0); LYMPH % 8.3 % (9.0-44.0); LYMPHOCYTE # 0.9 TH/MM3 (1.0-4.8); MEAN CELL VOLUME 92.9 FL (80.0-100.0); MEAN CORPUSCULAR HEMOGLOBIN 30.5 PG (27.0-34.0); MEAN CORPUSCULAR HGB CONC 32.8 % (32.0-36.0); MEAN PLATELET VOLUME 8.5 FL (7.0-11.0); MONO % 8.6 % (0.0-8.0); MONOCYTE # 0.9 TH/MM3 (0-0.9); NEUT % 82.6 % (16.0-70.0); PLATELET COUNT 184 TH/MM3 (150-450); RED BLOOD COUNT 3.91 MIL/MM3 (4.50-5.90); RED CELL DISTRIBUTION WIDTH 13.3 % (11.6-17.2)
[2017-07-31 05:13] LABS: CALCIUM 7.7 MG/DL (8.5-10.1)
[2017-07-31 05:14] LABS: BICARBONATE 28.9 MEQ/L (21.0-32.0)
[2017-07-31 05:17] LABS: CREATININE 1.1 MG/DL (0.60-1.30)
[2017-07-31] MEDS ORDERED: IOHEXOL 350 MG/ML 10 ML VIAL (for RAD DIAG) IVCONTRAST ONE (05:29)
--- NOTE | 2017-07-31 05:38 | RADRPT ---
EXAM DATE: 07/31/2017 5:28 AM EDT AGE/SEX: 86 years / Male INDICATIONS: Right pleural effusion. CLINICAL DATA: This is the patient's subsequent encounter. Patient reports that signs and symptoms h ave been present for 1 day and indicates a pain score of 4/10. MEDICAL/SURGICAL HISTORY: Chronic obstructive pulmonary disease. Carcinoma, skin cancer. None. RADIATION DOSE: 7.34 CTDI (mGy) COMPARISON: [facility], CHEST SINGLE AP, 07/30/2017. . TECHNIQUE: Multiple contiguous axial images were obtained through the chest during bolus infusion of 75 ml Omnipaque 350 (iohexol) nonionic water-soluble contrast as a single exam dose. Images were obtained in suspended respiration using multiple row detector helical technique. Using automated exp osure control and adjustment of the mA and/or kV according to patient size, radiation dose was kept a s low as reasonably achievable to obtain optimal diagnostic quality images. FINDINGS: Lungs: There is interstitial infiltrates throughout both lung obrien. There is a right-sided pneumot horax. There is atelectasis in both lung bases along with bilateral pleural effusions. Mediastinum: There is good visualization of the great vessels of the middle mediastinum. No evidenc e of mediastinal or hilar adenopathy/mass. Pleurae: Small Bilateral pleural effusions. Axillae: Unremarkable. Bony Structures: Primary bony degenerative changes. Miscellaneous: The examination was extended to include the upper abdomen, and both adrenal glands ar e normal in size and configuration. CONCLUSION: 1. There is a small to moderate right-sided pneumothorax. 2. Small bilateral pleural effusions and bibasilar atelectasis. 3. Bilateral interstitial infiltrates. Electronically signed by: Toan Lamas MD 07/31/2017 5:37 AM EDT
[2017-07-31] MEDS: LEVOTHYROXINE SODIUM 25 MCG TAB PO SCH (05:51)
[2017-07-31] MEDS: PIPERACIL-TAZO 4.5 GM PREMIX 100 ML IV SCH ×4 (05:51→23:46)
--- NOTE | 2017-07-31 08:24 | HHI.PR ---
Subjective Remarks Follow-up pneumonia and STEMI. Patient seen and examined, lying in bed comfortably in no apparent distress. Patient denies any shortness of breath or pain. Denies any chest pain. Denies any acute events overnight. Vital signs stable overnight. Cardiac telemetry unremarkable overnight. Eating well with no nausea, vomiting or diarrhea. Labs improving. Objective Vitals Vital Signs Date Time Temp Pulse Resp B/P (MAP) Pulse Ox O2 Delivery O2 Flow Rate FiO2 07/31/17 04:00 96.9 57 16 113/70 (84) 97 07/31/17 00:00 96.9 66 18 129/78 (95) 96 07/30/17 20:15 64 07/30/17 20:15 95 Nasal Cannula 2.00 07/30/17 20:00 97.2 61 20 110/66 (81) 93 07/30/17 16:39 Nasal Cannula 2.00 07/30/17 16:00 96.9 65 16 114/65 (81) 95 07/30/17 14:43 97.2 68 18 107/60 (76) 94 07/30/17 14:00 07/30/17 12:45 72 22 128/79 (95) 94 Nasal Cannula 2.00 07/30/17 11:16 88 Nasal Cannula 2.00 07/30/17 11:16 94 Nasal Cannula 2.00 07/30/17 11:13 22 88 Room Air 07/30/17 11:00 98.2 82 20 144/88 (106) 88 I/O 07/30/17 07/30/17 07/30/17 07/31/17 07/31/17 07/31/17 07:00 15:00 23:00 07:00 15:00 23:00 Intake Total 1000 ml 755 ml Balance 1000 ml 755 ml Intake IV Total 1000 ml 755 ml Result Diagram: 07/31/17 0425 07/31/17 0425 Imaging Last Impressions Chest CT 07/31/17 0000 Signed Impressions: CONCLUSION: 1. There is a small to moderate right-sided pneumothorax. 2. Small bilateral pleural effusions and bibasilar atelectasis. 3. Bilateral interstitial infiltrates. Chest X-Ray 07/30/17 1101 Signed Impressions: CONCLUSION: New right-sided small pleural effusion. Progressive airspace density overlying the right lower lobe. Tubular appearance suggests bronchiectasis. Consider furt her evaluation of the chest with CT. Objective Remarks GENERAL: Well-developed, well-nourished elderly male patient in NAD. Pleasantly confused underlying Alzheimer's SKIN: Warm and dry. No rash. HEAD: Normocephalic. Atraumatic. EYES: Pupils equal and round. No scleral icterus. No injection or drainage. ENT: No nasal bleeding or discharge. Mucous membranes pink and moist. Thrush noted on tongue NECK: Supple. Trachea midline. CARDIOVASCULAR: Regular rate and rhythm. S1, S2 noted. No murmur appreciated. RESPIRATORY: No accessory muscle use. Diminished breath sounds throughout lung obrien. Breath sounds equal bilaterally. GASTROINTESTINAL: Abdomen soft, non-tender, nondistended. Normoactive bowel sounds x4. MUSCULOSKELETAL: No obvious deformities. Extremities without clubbing, cyanosis , or edema. NEUROLOGICAL: Awake and alert. No obvious cranial nerve deficits. Motor grossly within normal limits. 5/5 muscle strength in bilateral upper and lower extremities. Normal speech. A/P Problem List: (1) STEMI (ST elevation myocardial infarction) ICD Code: I21.3 - ST elevation (STEMI) myocardial infarction of unspecified site Status: Acute (2) Pneumonia ICD Code: J18.9 - Pneumonia, unspecified organism Status: Acute (3) Dehydration ICD Code: E86.0 - Dehydration Status: Acute Assessment and Plan 86-year-old man with STEMI EKG showing SR with controlled heart rate, ST elevation in V3, V4 that is new from prior in 07/24/17. , CORTEZA, is refusing any intervention and cardiac cath. Cardiology detonator maker recommending aspirin, metoprolol and pantoprazole. Stable overnight. No chest pain. Will speak to today regarding treatment plan and recommendations for palliative care consult. Hospital-acquired pneumonia Recently treated for community-acquired bacterial pneumonia. Leukocytosis possible secondary to above or likely recent steroid use. Improved. Right sided small to moderate pneumothorax Chest x-ray reviewed showing new right sided small pleural effusion. Progressive airspace density overlying the right lower lobe. Chest CT reviewed showing small to moderate right-sided pneumothorax. Patient is asymptomatic, denies any dyspnea. Does not appear to be in distress. No pain. Will continue to monitor. Will continue vancomycin and Zosyn. Gentle hydration, monitor for overload. COPD not in exacerbation Currently on p.o. prednisone, continue Symbicort, Spiriva, bronchodilator schedule and as needed, Mucinex Continue with antibiotics Maintain oxygen saturation above 88% Oral thrush: Recent antibiotic use. Added nystatin swish and swallow. Continue. Hypothyroidism: Continue outpatient medications. Alzheimer: Chronic. Supportive care. DVT prophylaxis: Bilateral SCDs. Heparin. Code status: DNR. Discharge Planning Will address treatment plan with and patient, possible palliative care consult. Establish goals, discharge planning pending. Problem Qualifiers (1) STEMI (ST elevation myocardial infarction): Qualified Codes: I21.3 - ST elevation (STEMI) myocardial infarction of unspecified site (2) Pneumonia: Qualified Codes: J18.1 - Lobar pneumonia, unspecified organism Lindsay Wilkinson Jul 31, 2017 08:24
--- NOTE | 2017-07-31 09:06 | EKG ---
Date Performed: 07/30/2017 Time Performed: 16:46:34 PTAGE: 86 years EKG: Sinus rhythm WITH FIRST DEGREE AV BLOCK MARKED LEFT AXIS DEVIATION POSSIBLE RIGHT VENTRICULAR CONDUCTION DELAY AN TEROSEPTAL MYOCARDIAL INFARCTION ABNORMAL ECG PREVIOUS TRACING : 07/30/2017 11.01 Since the previous tracing, no significant change noted DOCTOR: Ken Harvey Interpretating Date/Time 07/31/2017 09:06:30
--- NOTE | 2017-07-31 09:55 | EKG ---
Date Performed: 07/30/2017 Time Performed: 19:50:02 PTAGE: 86 years EKG: Sinus rhythm WITH FIRST DEGREE AV BLOCK WITH OCCASIONAL SUPRAVENTRICULAR PREMATURE COMPLEXES MARKED LEFT AXIS DEV IATION INCOMPLETE RIGHT BUNDLE BRANCH BLOCK ANTERIOR WY OF INDETERMINATE AGE Since the PREVIOUS TRACING , no significant change noted PREVIOUS TRACIN07/30/2017 16.46 DOCTOR: Ken Harvey Interpretating Date/Time 07/31/2017 09:53:48
[2017-07-31] MEDS: DOCUSATE SODIUM 50 MG/SENNA 8.6 MG TAB PO SCH ×2 (11:05→22:20)
[2017-07-31] MEDS: PANTOPRAZOLE SOD 40 MG DELAYED RELEASE TAB PO SCH (11:05)
[2017-07-31] MEDS: guaiFENesin E.R. 600 MG TAB PO SCH ×2 (11:10→22:20)
[2017-07-31] MEDS: ASPIRIN 81 MG CHEW TAB CHEW SCH (11:11)
[2017-07-31] MEDS: METOPROLOL TARTRATE 25 MG TAB PO SCH ×2 (11:13→22:20)
[2017-07-31] MEDS: SODIUM CHLORIDE 0.9% FLUSH 10 ML FLUSH IV FLUSH SCH ×2 (11:13→22:20)
[2017-07-31] MEDS: TIOTROPIUM BROMIDE 18 MCG INH INH SCH (11:14)
[2017-07-31] MEDS: SODIUM CHLOR 0.45% 1000 ML INJ 1,000 ML IV SCH (11:15)
[2017-07-31] MEDS: NYSTATIN SUSP 500,000 U/5 ML CUP SWISH-SWAL SCH ×4 (11:16→22:21)
[2017-07-31] MEDS: VANCOMYCIN 1 GM/200 ML INJ 200 ML IV SCH (11:16)
[2017-07-31] MEDS: HEPARIN SODIUM - SQ 10,000 UNITS/ML VIAL SQ SCH ×2 (11:17→22:22)
--- NOTE | 2017-07-31 14:43 | PD.CONS ---
Consult Service Palliative Care Consult Requested By [facility] Primary Care Physician Vince Vuong MD Reason for Consultation a. To assist with evaluation and management of symptoms including: Anxiety, dyspnea, pain, thrush b. To assist medical decision maker(s) with: better understanding of current medical conditions; weighing benefits/burdens of medical treatment options; making medical treatment decisions. HPI History of Present Illness Patient is a 86-year-old with a past medical history significant for Alzheimer' s disease, hypothyroidism. He presented to the hospital on July 30, 2017 for midsternal chest pain. Pain started 1 day prior to presentation to the hospital that eventually went away but recurred again the next day on July 30, 2017. Patient also just had a hospitalization from July 24 - July 28 for COPD exacerbation with pneumonia. In the ER: * Temperature is 98.2, pulse is 82, Restasis 20, blood pressure is 144/80, pulse ox is 88%. Patient subsequently place on nasal cannula and sats were 94%. * WBCs 15.6, hemoglobin is 13.8, hematocrit is 41.9, platelets 232 * Sodium is 143, potassium is 3.9, chloride is 107, bicarb is 29.5, BUN is 35, creatinine is 1.20 * CK-MB is 3.0, troponin I0.29. Next sats were 0.26 and 0.22 * Chest x-ray shows new right-sided small pleural effusion. * In the ER the EKG shows new ST elevation on V3 and V4. Patient's does not want cardiac catheterization. * Initial EKG shows ST elevation in V3 and V4. * Subsequent EKG shows first-degree AV block with occasional SVT, there is also left axis deviation with incomplete right bundle branch block anterior RI of indeterminate age. 07/31/2017: Chest CT There is a [id number] right-sided pneumothorax. There is small bilateral pleural effusion. There is bibasilar interstitial infiltrates. Clinically patient eating well with no nausea, vomiting or diarrhea. Creatinine is down to 1.10. In summary this is a 86-year-old with past medical history significant for Alzheimer's, COPD. Recently admitted for COPD exacerbation and quickly returned to the hospital for an RI. Patient has small right-sided pneumothorax and bibasilar interstitial infiltrates. Palliative care was consulted to review goals of care with patient's and family Patient is confused on my visit, he could not recall the name of his . He said he does not have children, but endorses he does have children of his own. Pt's denies dyspnea, he is out in the hallway in a recliner with O2. Confused, but not anxious. Could not give a could history given level of confusion and Alzheimer's. He denies chest pain currently, but state, he has mouth pain from thrush. I spoke with pt's and review his functional, status, and current clinical condition. Goals of treatment was reviewed. Review his pneumothorax. Goals of treatment is as follows. == She would want to get pulmonlogy's opinion to see if there needs to be a chest tube placement. I did review with her that with his Alzhiemer, I do worry that he may pull on the chest tube if it is requried. == She is not quite sure she if would want to proceed with chest tube if he requires one. == She is amenable to hospice consult . She is amenable for me to place hospice consult now to have hospice follow, as pulmonology is rendering opinion and evaluation of pneumothorax. == Her goals of treatment is once pulmonolgy evaluate, and he is as stable as he possibly can be, would want pt to go home with hospice. Function/Cognitive Trajectory Patient need assitance with bathing, toiletry. He is ambulatory, has not fallen. He is confused. Appetite has gone down with thrush. No big agitation epidose per , but at times refuses to do things. Review of Systems ROS Limitations: Clinical Condition Constitutional: COMPLAINS OF: Fatigue, Weight loss Endocrine: COMPLAINS OF: Heat/cold intolerance (feels cold at times) Eyes: DENIES: Blurred vision, Diplopia Ears, nose, mouth, throat: COMPLAINS OF: Hearing loss (some hearing deficit.) Respiratory: COMPLAINS OF: Wheezing, Shortness of breath Cardiovascular: COMPLAINS OF: Dyspnea on Exertion, DENIES: Lower Extremity Edema Gastrointestinal: DENIES: Abdominal pain, Black stools, Bloody stools Genitourinary: DENIES: Urinary frequency, Urinary incontinence, Urgency Musculoskeletal: DENIES: Joint pain, Muscle aches Integumentary: DENIES: Abnormal pigmentation, Nail changes Hematologic/Lymphatics: DENIES: Bruising, Lymphadenopathy Immunologic/Allergic: DENIES: Eczema Neurologic: DENIES: Abnormal gait, Headache Psychiatric: COMPLAINS OF: Anxiety, Confusion Past Family Social History Coded Allergies: No Known Allergies (Verified Allergy, Unknown, 07/24/17) Past Medical History * COPD * Alzheimer's disease * Thyroid disease * History of skin cancer to back and face Past Surgical History 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 Reported Medications Levothyroxine (Levothyroxine Sodium) 25 Mcg Tab Unknown Dose PO DAILY Current Medications Medications (Trade) Dose Ordered Sig/Carmen Route Start Time Stop Time Status Last Admin Sodium Chloride 1,000 ml @ 50 mls/hr Q20H IV 07/30/17 13:53 07/31/17 11:15 (NS Flush) 2 ml UNSCH PRN IV FLUSH 07/30/17 14:00 (NS Flush) 2 ml BID IV FLUSH 07/30/17 21:00 07/31/17 11:13 (Tylenol) 650 mg Q4H PRN PO 07/30/17 14:00 (Zofran Inj) 4 mg Q6H PRN IVP 07/30/17 14:00 (Narcan Inj) 0.4 mg UNSCH PRN IV PUSH 07/30/17 14:00 (Shraddha-Colace) 1 tab BID PO 07/30/17 21:00 07/31/17 11:05 (Milk Of Magnesia Liq) 30 ml Q12H PRN PO 07/30/17 14:00 (Senokot) 17.2 mg Q12H PRN PO 07/30/17 14:00 (Dulcolax Supp) 10 mg DAILY PRN RECTAL 07/30/17 14:00 (Heparin Inj) 5,000 units Q12HR SQ 07/30/17 21:00 07/31/17 11:17 Vancomycin/Sodium Chloride 200 ml @ 250 mls/hr Q24H IV 07/31/17 11:00 07/31/17 11:16 Piperacillin Sod/ Tazobactam Sod 100 ml @ 200 mls/hr Q6HR IV 07/30/17 18:00 07/31/17 13:11 (Mycostatin Liq) 5 ml QID SWISH-SWAL 07/30/17 18:00 07/31/17 13:11 (Proair Hfa Inh) 2 puff BID PRN INH 07/30/17 16:45 (Xanax) 0.25 mg Q6H PRN PO 07/30/17 16:45 (Mucinex Er) 600 mg BID PO 07/30/17 21:00 07/31/17 11:10 (Aspirin Chew) 81 mg DAILY CHEW 07/31/17 09:00 07/31/17 11:11 (Lopressor) 12.5 mg Q12HR PO 07/30/17 21:00 07/31/17 11:13 (Protonix) 40 mg DAILY PO 07/31/17 09:00 07/31/17 11:05 (Synthroid) 25 mcg DAILY@0600 PO 07/31/17 06:00 07/31/17 05:51 (Pill Splitter) 1 ea UNSCH PRN OTHER 07/30/17 17:00 (Spiriva Inh) 18 mcg DAILY INH 07/30/17 16:54 07/31/17 11:14 Family History Could not elicit from patient. Substance Use Tobacco: Alcohol: Prescription med abuse: Illicits: Psychosocial History x 2. Divorce once. this is his 2nd marriage. Has 2 daughters from his previous marriage. Spiritual/Cultural Factors Holiness, but no longer goes to mandaeism with anymore. Living Will: Completed, but not made available Physical Exam Vital Signs Date Time Temp Pulse Resp B/P (MAP) Pulse Ox O2 Delivery O2 Flow Rate FiO2 07/31/17 12:00 97.2 57 17 118/64 (82) 99 07/31/17 10:20 Nasal Cannula 2.00 07/31/17 08:00 98.2 63 17 121/60 (80) 95 07/31/17 07:45 95 Nasal Cannula 2.00 07/31/17 04:00 96.9 57 16 113/70 (84) 97 07/31/17 00:00 96.9 66 18 129/78 (95) 96 07/30/17 20:15 64 07/30/17 20:15 95 Nasal Cannula 2.00 07/30/17 20:00 97.2 61 20 110/66 (81) 93 07/30/17 16:39 Nasal Cannula 2.00 07/30/17 16:00 96.9 65 16 114/65 (81) 95 07/30/17 14:43 97.2 68 18 107/60 (76) 94 Exam CONSTITUTIONAL/GENERAL: This is a frail elderly male, with nasal canula. TUBES/LINES/DRAINS: NC, PIV SKIN: No jaundice, rashes, or lesions. Ecchymoses on upper extremities. No wounds seen anteriorly. Skin temperature appropriate. Not diaphoretic. HEAD: Atraumatic. Normocephalic. EYES: Pupils equal and round and reactive. Extraocular motions intact. No scleral icterus. No injection or drainage. Fundi not examined. ENT: Hearing grossly normal. Nose without bleeding or purulent drainage. Throat without visible erythema, some white plaque in the mouth. NECK: Trachea midline. Supple, nontender. No palpable thyroid enlargement or nodularity. CARDIOVASCULAR: Regular rate and rhythm without murmurs, gallops, or rubs. No JVD. Peripheral pulses symmetric. RESPIRATORY/CHEST: Unlabored breathing, decrease breath sound bilaterlly. GASTROINTESTINAL: Abdomen soft, non-tender, nondistended. No hepato-splenomegaly , or palpable masses. No guarding. Bowel sounds present. GENITOURINARY: Without palpable bladder distension. Beckman catheter in place. MUSCULOSKELETAL: Extremities without clubbing, cyanosis, or edema. No joint tenderness or effusion noted. No calf tenderness. No mottling or clubbing. LYMPHATICS: No palpable cervical or supraclavicular adenopathy. NEUROLOGICAL: Awake and alert. Confused. Moves all extremities. PSYCHIATRIC: No agitation, but I can see some anxiety with his confusion. Diagnostic Tests Laboratory Laboratory Tests Test 07/30/17 11:05 07/30/17 16:50 07/30/17 19:25 07/30/17 19:55 White Blood Count 15.6 TH/MM3 (4.0-11.0) Red Blood Count 4.52 MIL/MM3 (4.50-5.90) Hemoglobin 13.8 GM/DL (13.0-17.0) Hematocrit 41.9 % (39.0-51.0) Mean Corpuscular Volume 92.8 FL (80.0-100.0) Mean Corpuscular Hemoglobin 30.5 PG (27.0-34.0) Mean Corpuscular Hemoglobin Concent 32.8 % (32.0-36.0) Red Cell Distribution Width 13.3 % (11.6-17.2) Platelet Count 232 TH/MM3 (150-450) Mean Platelet Volume 8.6 FL (7.0-11.0) Neutrophils (%) (Auto) 83.4 % (16.0-70.0) Lymphocytes (%) (Auto) 7.0 % (9.0-44.0) Monocytes (%) (Auto) 7.3 % (0.0-8.0) Eosinophils (%) (Auto) 0.2 % (0.0-4.0) Basophils (%) (Auto) 2.1 % (0.0-2.0) Neutrophils # (Auto) 13.1 TH/MM3 (1.8-7.7) Lymphocytes # (Auto) 1.1 TH/MM3 (1.0-4.8) Monocytes # (Auto) 1.1 TH/MM3 (0-0.9) Eosinophils # (Auto) 0.0 TH/MM3 (0-0.4) Basophils # (Auto) 0.3 TH/MM3 (0-0.2) CBC Comment AUTO DIFF Differential Comment AUTO DIFF CONFIRMED Prothrombin Time 12.0 SEC (9.8-11.6) Prothromb Time International Ratio 1.2 RATIO Activated Partial Thromboplast Time 25.0 SEC (24.3-30.1) Blood Urea Nitrogen 35 MG/DL (7-18) Creatinine 1.20 MG/DL (0.60-1.30) Random Glucose 120 MG/DL (74-106) Calcium Level 8.4 MG/DL (8.5-10.1) Sodium Level 143 MEQ/L (136-145) Potassium Level 3.9 MEQ/L (3.5-5.1) Chloride Level 107 MEQ/L (98-107) Carbon Dioxide Level 29.5 MEQ/L (21.0-32.0) Anion Gap 7 MEQ/L (5-15) Estimat Glomerular Filtration Rate 57 ML/MIN (>89) Total Creatine Kinase 122 U/L (39-308) 72 U/L (39-308) 62 U/L (39-308) Creatine Kinase MB 3.0 NG/ML (0.5-3.6) Troponin I 0.29 NG/ML (0.02-0.05) 0.26 NG/ML (0.02-0.05) 0.22 NG/ML (0.02-0.05) Lactic Acid Level 1.1 mmol/L (0.4-2.0) Urine Color YELLOW (YELLW/STRAW) Urine Turbidity CLEAR (CLEAR) Urine pH 5.0 (5.0-8.5) Urine Specific [place] GREATER/EQUAL 1.030 Urine Protein TRACE mg/dL (NEG-TRACE) Urine Glucose (UA) NEG mg/dL (NEG) Urine Ketones NEG mg/dL (NEG) Urine Occult Blood NEG (NEG) Urine Nitrite NEG (NEG) Urine Bilirubin NEG (NEG) Urine Urobilinogen 0.2 MG/DL (LESS THAN Urine Leukocyte Esterase NEG (NEG) Urine RBC 0-2 /hpf (0-3) Urine WBC 0-2 /hpf (0-5) Urine Squamous Epithelial Cells 0-5 /hpf (0-5) Urine Amorphous Sediment FEW Urine Bacteria NONE /hpf (NONE) Microscopic Urinalysis Comment CULT NOT INDICATED Test 07/31/17 04:25 White Blood Count 11.0 TH/MM3 (4.0-11.0) Red Blood Count 3.91 MIL/MM3 (4.50-5.90) Hemoglobin 11.9 GM/DL (13.0-17.0) Hematocrit 36.3 % (39.0-51.0) Mean Corpuscular Volume 92.9 FL (80.0-100.0) Mean Corpuscular Hemoglobin 30.5 PG (27.0-34.0) Mean Corpuscular Hemoglobin Concent 32.8 % (32.0-36.0) Red Cell Distribution Width 13.3 % (11.6-17.2) Platelet Count 184 TH/MM3 (150-450) Mean Platelet Volume 8.5 FL (7.0-11.0) Neutrophils (%) (Auto) 82.6 % (16.0-70.0) Lymphocytes (%) (Auto) 8.3 % (9.0-44.0) Monocytes (%) (Auto) 8.6 % (0.0-8.0) Eosinophils (%) (Auto) 0.5 % (0.0-4.0) Basophils (%) (Auto) 0.0 % (0.0-2.0) Neutrophils # (Auto) 9.1 TH/MM3 (1.8-7.7) Lymphocytes # (Auto) 0.9 TH/MM3 (1.0-4.8) Monocytes # (Auto) 0.9 TH/MM3 (0-0.9) Eosinophils # (Auto) 0.1 TH/MM3 (0-0.4) Basophils # (Auto) 0.0 TH/MM3 (0-0.2) CBC Comment AUTO DIFF Differential Comment AUTO DIFF CONFIRMED Platelet Estimate NORMAL (NORMAL) Platelet Morphology Comment NORMAL (NORMAL) Red Cell Morphology Comment NORMAL (NORMAL) Blood Urea Nitrogen 37 MG/DL (7-18) Creatinine 1.10 MG/DL (0.60-1.30) Random Glucose 103 MG/DL (74-106) Calcium Level 7.7 MG/DL (8.5-10.1) Sodium Level 144 MEQ/L (136-145) Potassium Level 3.6 MEQ/L (3.5-5.1) Chloride Level 109 MEQ/L (98-107) Carbon Dioxide Level 28.9 MEQ/L (21.0-32.0) Anion Gap 6 MEQ/L (5-15) Estimat Glomerular Filtration Rate 63 ML/MIN (>89) Result Diagram: 07/31/17 0425 07/31/17 0425 Imaging Last Impressions Chest CT 07/31/17 0000 Signed Impressions: CONCLUSION: 1. There is a small to moderate right-sided pneumothorax. 2. Small bilateral pleural effusions and bibasilar atelectasis. 3. Bilateral interstitial infiltrates. Chest X-Ray 07/30/17 1101 Signed Impressions: CONCLUSION: New right-sided small pleural effusion. Progressive airspace density overlying the right lower lobe. Tubular appearance suggests bronchiectasis. Consider furt her evaluation of the chest with CT. Patient/Family Conference Family Conference Location: Bedside, Telephone Issues Discussed: * Palliative care role, purpose, approach * Additional medical, psychosocial, and spiritual history * Patients general health, functional status, and cognitive changes in the months leading up to the current hospitalization * Patient/family understanding of the current medical problems * Patient/family understanding of prognosis * Patients goals of care as best understood from advance directives and/or conversations and/or values * Current medical treatment options and benefits/burdens of those options * Likely scenarios comparing ongoing aggressive care with a transition to comfort measures only * Questions answered to the best of my ability * Palliative care contact information provided Assessment and Plan Disease Oriented Problem List: (1) STEMI (ST elevation myocardial infarction) (2) COPD (chronic obstructive pulmonary disease) (3) Pneumothorax Symptom Scale: (1) Anxiety (2) Pain (3) Dyspnea Pertinent Non-Medical Issues Psychosocial: From [place]. This is 2nd marriage. Lives with spouse and stepdaughter. Spiritual: Holiness Legal: has living will but not made available. Need to follow. spouse is proxy currently. Ethical issues impacting care:none currently. Important Contacts [phone] Spouse Nuvia Pena Prognosis Pt with copd, RI, recent hospitalization for both. Appears appropriate for hospice <6 months, if goals of care were comfort oriented. Code Status: No Code Plan ==Symptoms: pain- chest pain - pneumothorax, STEMI, Thrush- add some magic mouthwash, cont nystatin dyspnea- copd and SteMI. anxiety- associated with discomfort and pt's underlying Alzheimer's disease. Xanax availabkle == code DNR ==Capacity- has Alzheimer's disease. Pt is confused, could not recall name of . Does not remember he has 2 daughters. He does not have capacity to make medical decisions. ==Health Care decision maker- no living will present currently, per she does have a copy and she is the health care surrogate. Per TORI srivastava, if no living will is available, healthcare proxy would be pt's spouse. == Goals of treatment: I spoke with pt's and review his functional, status , and current clinical condition. Goals of treatment was reviewed. Review his pneumothorax. Goals of treatment is as follows. == decline catheterization or any invasive cardiac interventions for STEMI. == She would want to get pulmonlogy's opinion to see if there needs to be a chest tube placement. I did review with her that with his Alzhiemer, I do worry that he may pull on the chest tube if it is requried. == She is not quite sure she if would want to proceed with chest tube if pt requires one. == She is amenable to hospice consult now. She is amenable for me to place hospice consult now to and have hospice follow, as pulmonology is rendering opinion and evaluation of pneumothorax. == Her goals of treatment is once pulmonology evaluate, and if he is as stable, would want pt to go home with hospice. If chest tube is required, and family does want chest tube, pt can still go home with hospice once stable and chest tube is placed. == Palliative Care will Follow Along to make recommendations on symptom management and review goals of care. ==d/w with Dr. Garcia Thank you for the opportunity to participate in the care of Mr. Pena. Attestation To help prompt me to consider important information that might be impacting today's encounter and assessment, information from prior notes written by myself or my colleagues may have been "brought forward" into today's note. My signature on this note, however, is an attestation that I personally performed the exam, history, and/or decision-making noted today, and, unless otherwise indicated, the interactions with patient, family, and staff as well as the review of records all occurred today. I also attest that the listed assessment and stated plan reflect my best clinical judgment today based on the combination of historical information, prior notes, and today's exam/ interactions. When time spent is documented, it refers only to time spent today by the signer, or if indicated, combined time spent today by collaborating physician/nurse practitioner. Andrew Dillard MD Jul 31, 2017 14:43
[2017-07-31] MEDS: NYSTAT/DIPHENHY/LIDO MOUTHWASH (Adult) 120ML SWISH-SWAL SCH (18:08)
--- NOTE | 2017-07-31 21:53 | MB ---
cc: Kartik Ross MD DATE: 07/31/2017 REASON FOR CONSULTATION: Pneumothorax. HISTORY OF PRESENT ILLNESS: Mr. Pena is an 86-year-old male with Alzheimer's dementia, history of COPD and continues to smoke. The patient was recently admitted in this hospital on 07/24-07/28 with COPD exacerbation and pneumonia. He was brought back over here with chest pain and more confusion. He was worked up in the hospital, was found to have a non-STEMI. Also, he had a CT scan of the chest done, which shows that he has small to moderate right-sided pneumothorax, small pleural effusion, with basal atelectasis and bilateral interstitial infiltrates. His WBC count is 11.0, hemoglobin 11.9, hematocrit 36.3, MCV 92, platelet count 184. Sodium 144, potassium 3.6, chloride 109, CO2 29, BUN 37, creatinine 1.10. INR is 1.2. PAST MEDICAL HISTORY: Significant for history of Alzheimer's dementia, COPD, non-STEMI, skin cancers. MEDICATIONS: He is currently taking vancomycin, aspirin, Protonix, levothyroxine 25 mcg a day, heparin 5000 q. 12 hours, Zosyn IV, Spiriva once a day, albuterol nebulizer treatment. ALLERGIES: NO KNOWN DRUG ALLERGIES. SOCIAL HISTORY: He is . He used to work for [employer]. He has a long history of smoking, continues to smoke. FAMILY HISTORY: He has 2 children. REVIEW OF SYSTEMS: As per his , he is able to walk barely inside the house and has been having worsening of his mental status. No seizure or epilepsy. PHYSICAL EXAMINATION: GENERAL: Elderly male, confused, sitting in chair on room air, not in any acute distress. VITAL SIGNS: His blood pressure 120/64, heart rate 106, respirations 16, temperature 97.1, oxygen saturation 94% on room air. HEENT: Pupils are equal to direct light. Oral mucosa and nasal mucosa normal. NECK: Supple. JVP not raised. CHEST: He has good breath sounds bilaterally. CARDIOVASCULAR: S1, S2 normal. ABDOMEN: Benign. EXTREMITIES: No edema. IMPRESSION: 1. Small to moderate right pneumothorax, spontaneous. The patient is tolerating well. 2. Small pleural effusion. 3. Basilar atelectasis. 4. Nicotine use. 5. Alzheimer's dementia. 6. Non-ST elevation myocardial infarction. PLAN: I discussed with the patient's , hospice. Hospice is already consulted. The patient is comfortable at this time. Since the patient is comfortable, she does not want to have any chest tube placed because she is also afraid that the patient will pull the tube out. If his pneumothorax gets worse or he is short of breath, then she will consider allowing chest tube placement. Hospice already evaluated the patient and the plans are underway. Discharge with hospice. Further treatment will depend on the course in the hospital. Thank you, Dr. riky Garcia, for this consult. MD RAHUL Craft/CEZAR/maria esther , 06:14 PM , 07:42 PM MTDD
[2017-07-31] MEDS: SODIUM CHLORIDE 0.9% FLUSH 10 ML FLUSH IV FLUSH PRN (23:46)
[2017-08-01] VITALS (7 sets, daily range): BP systolic 113–133; BP diastolic 60–83; PULSE 55–68; RESP 20; TEMP 96.3–96.8; O2SAT 94–100
[2017-08-01] MEDS: SODIUM CHLORIDE 0.9% FLUSH 10 ML FLUSH IV FLUSH PRN (05:51)
[2017-08-01] MEDS: PIPERACIL-TAZO 4.5 GM PREMIX 100 ML IV SCH ×3 (05:51→17:34)
[2017-08-01] MEDS: SODIUM CHLOR 0.45% 1000 ML INJ 1,000 ML IV SCH (05:51)
[2017-08-01] MEDS: LEVOTHYROXINE SODIUM 25 MCG TAB PO SCH (05:52)
[2017-08-01] MEDS: ASPIRIN 81 MG CHEW TAB CHEW SCH (09:00)
[2017-08-01] MEDS: TIOTROPIUM BROMIDE 18 MCG INH INH SCH (09:00)
[2017-08-01] MEDS: METOPROLOL TARTRATE 25 MG TAB PO SCH (09:00)
[2017-08-01] MEDS: NYSTAT/DIPHENHY/LIDO MOUTHWASH (Adult) 120ML SWISH-SWAL SCH ×3 (09:00→17:36)
[2017-08-01] MEDS: PANTOPRAZOLE SOD 40 MG DELAYED RELEASE TAB PO SCH (09:00)
[2017-08-01] MEDS: DOCUSATE SODIUM 50 MG/SENNA 8.6 MG TAB PO SCH (09:00)
[2017-08-01] MEDS: guaiFENesin E.R. 600 MG TAB PO SCH (09:01)
[2017-08-01] MEDS: HEPARIN SODIUM - SQ 10,000 UNITS/ML VIAL SQ SCH (09:02)
[2017-08-01] MEDS: SODIUM CHLORIDE 0.9% FLUSH 10 ML FLUSH IV FLUSH SCH (09:02)
[2017-08-01] MEDS: NYSTATIN SUSP 500,000 U/5 ML CUP SWISH-SWAL SCH ×3 (09:02→17:37)
[2017-08-01] MEDS: VANCOMYCIN 1 GM/200 ML INJ 200 ML IV SCH (10:57)
--- NOTE | 2017-08-01 11:28 | RADRPT ---
EXAM DATE: 08/01/2017 10:09 AM EDT AGE/SEX: 86 years / Male INDICATIONS: Pneumothorax/ CLINICAL DATA: This is the patient's subsequent encounter. Patient reports that signs and symptoms h ave been present for 3 days and indicates a pain score of 0/10. MEDICAL/SURGICAL HISTORY: Chronic obstructive pulmonary disease. Thyroid disease. Alzheimer's d isease. Myocardial infarction. Skin CA. None. COMPARISON: [facility], CHEST SINGLE AP, 07/30/2017. . FINDINGS: There is persistent infiltrate in the right lung base. Its unchanged from the previous study. There i s a small right pleural effusion. There is no visible pneumothorax. Heart and mediastinum are unremar kable. There is tortuous. CONCLUSION: Stable infiltrate right lung base. There is some lucency in the right lung apex but I do not see a pl eural line to confirm a pneumothorax. Electronically signed by: Zackery Howell MD 08/01/2017 11:27 AM EDT
[2017-08-01] MEDS ORDERED: DOXY100C PO (12:02)
[2017-08-01] MEDS ORDERED: ASPI81 CHEW (12:02)
[2017-08-01] MEDS ORDERED: BACT800T5 PO (12:02)
[2017-08-01] MEDS ORDERED: PANT40TA3 PO (12:07)
[2017-08-01] MEDS ORDERED: METO25TA3 PO (12:07)
[2017-08-01] MEDS ORDERED: Nystatin Liq SWISH-SWAL (12:11)
--- NOTE | 2017-08-01 12:12 | HHI.DS ---
Discharge Summary Admission Date Jul 30, 2017 at 13:30 Discharge Date: Aug 01, 2017 Admitting Diagnosis Dehydration, STEMI, pneumonia (1) STEMI (ST elevation myocardial infarction) ICD Code: I21.3 - ST elevation (STEMI) myocardial infarction of unspecified site Status: Acute (2) Pneumonia ICD Code: J18.9 - Pneumonia, unspecified organism Status: Acute (3) Dehydration ICD Code: E86.0 - Dehydration Status: Acute Procedures None Brief History - From Admission HPI from the admitting physician This is an 86-year-old male patient with a known medical history of Alzheimer's disease and hypothyroidism who presented to the ED accompanied by with complaints of midsternal chest pain. Per reports the pain started yesterday and eventually went away and then recurred this morning. At the time of assessment patient is lying in bed comfortably with no apparent distress. Patient is pleasantly confused with a history of Alzheimer's disease. Patient is unable to contribute to any of the medical history or recent events leading up to his hospitalization. is not at bedside at the time. It should be noted that patient was recently admitted between 07/24/17 to 07/28/17 for COPD exacerbation and pneumonia. Patient was stabilized with IV steroids and antibiotics and sent home with [facility]. CBC/BMP: 07/31/17 0425 07/31/17 0425 Significant Findings Laboratory Tests Test 07/30/17 11:05 07/30/17 16:50 07/30/17 19:25 07/30/17 19:55 White Blood Count 15.6 TH/MM3 (4.0-11.0) Neutrophils (%) (Auto) 83.4 % (16.0-70.0) Lymphocytes (%) (Auto) 7.0 % (9.0-44.0) Basophils (%) (Auto) 2.1 % (0.0-2.0) Neutrophils # (Auto) 13.1 TH/MM3 (1.8-7.7) Monocytes # (Auto) 1.1 TH/MM3 (0-0.9) Basophils # (Auto) 0.3 TH/MM3 (0-0.2) Prothrombin Time 12.0 SEC (9.8-11.6) Blood Urea Nitrogen 35 MG/DL (7-18) Random Glucose 120 MG/DL (74-106) Calcium Level 8.4 MG/DL (8.5-10.1) Estimat Glomerular Filtration Rate 57 ML/MIN (>89) Troponin I 0.29 NG/ML (0.02-0.05) 0.26 NG/ML (0.02-0.05) 0.22 NG/ML (0.02-0.05) Test 07/31/17 04:25 Red Blood Count 3.91 MIL/MM3 (4.50-5.90) Hemoglobin 11.9 GM/DL (13.0-17.0) Hematocrit 36.3 % (39.0-51.0) Neutrophils (%) (Auto) 82.6 % (16.0-70.0) Lymphocytes (%) (Auto) 8.3 % (9.0-44.0) Monocytes (%) (Auto) 8.6 % (0.0-8.0) Neutrophils # (Auto) 9.1 TH/MM3 (1.8-7.7) Lymphocytes # (Auto) 0.9 TH/MM3 (1.0-4.8) Blood Urea Nitrogen 37 MG/DL (7-18) Calcium Level 7.7 MG/DL (8.5-10.1) Chloride Level 109 MEQ/L (98-107) Estimat Glomerular Filtration Rate 63 ML/MIN (>89) Imaging Last Impressions Chest X-Ray 08/01/17 0000 Signed Impressions: CONCLUSION: Stable infiltrate right lung base. There is some lucency in the right lung apex but I do not see a pleural line to confirm a pneumothorax. Chest CT 07/31/17 0000 Signed Impressions: CONCLUSION: 1. There is a small to moderate right-sided pneumothorax. 2. Small bilateral pleural effusions and bibasilar atelectasis. 3. Bilateral interstitial infiltrates. PE at Discharge GENERAL: Well-developed, well-nourished elderly male patient in NAD. Pleasantly confused underlying Alzheimer's SKIN: Warm and dry. No rash. HEAD: Normocephalic. Atraumatic. EYES: Pupils equal and round. No scleral icterus. No injection or drainage. ENT: No nasal bleeding or discharge. Mucous membranes pink and moist. Thrush noted on tongue NECK: Supple. Trachea midline. CARDIOVASCULAR: Regular rate and rhythm. S1, S2 noted. No murmur appreciated. RESPIRATORY: No accessory muscle use. Diminished breath sounds throughout lung obrien. Breath sounds equal bilaterally. GASTROINTESTINAL: Abdomen soft, non-tender, nondistended. Normoactive bowel sounds x4. MUSCULOSKELETAL: No obvious deformities. Extremities without clubbing, cyanosis , or edema. NEUROLOGICAL: Awake and alert. No obvious cranial nerve deficits. Motor grossly within normal limits. 5/5 muscle strength in bilateral upper and lower extremities. Normal speech. Pt update on day of discharge Patient with significant Alzheimer's but able to tell me he is feeling okay. His breathing status is unchanged. He denies worsening shortness of breath. He feels comfortable. Hospital Course 86-year-old man admitted and treated for STEMI and pneumonia. Ultimately the patient's spouse decided on transitioning to comfort care with hospice services. Treatment course detailed below: STEMI EKG showing SR with controlled heart rate, ST elevation in V3, V4 that is new from prior in 07/24/17. , YARELY, is refusing any intervention and cardiac cath. Cardiology photogrammetric compilation specialist recommending aspirin, metoprolol and pantoprazole. Hospital-acquired pneumonia Recently treated for community-acquired bacterial pneumonia. Leukocytosis possible secondary to above or likely recent steroid use. Improved. Right sided small to moderate pneumothorax Chest x-ray reviewed showing new right sided small pleural effusion. Progressive airspace density overlying the right lower lobe. Chest CT reviewed showing small to moderate right-sided pneumothorax. Patient is asymptomatic, denies any dyspnea. Does not appear to be in distress. No pain. Patient was evaluated by pulmonology who recommended conservative management. Patient is discharged on Bactrim and doxycycline to complete the course of treatment for pneumonia. COPD not in exacerbation Continue Symbicort, Spiriva, bronchodilator schedule and as needed, Mucinex Continue with antibiotics Maintain oxygen saturation above 88% Oral thrush: Recent antibiotic use. Continue nystatin swish and swallow. Continue. Hypothyroidism: Continue outpatient medications. Alzheimer: Chronic. Supportive care. Pt Condition on Discharge: Good Discharge Disposition: Hospice/ Home Discharge Time: > 30 minutes Discharge Instructions DIET: Follow Instructions for: As Tolerated, No Restrictions Activities you can perform: Regular-No Restrictions New Medications: Doxycycline Hyclate (Doxycycline Hyclate) 100 Mg Cap 100 MG PO BID for Infection, #20 CAP 0 Refills Sulfamethoxazole-Trimethoprim (Bactrim DS) 800-160 Mg Tab 1 TAB PO BID for Infection, #14 TAB 0 Refills Aspirin (Tgt Aspirin) 81 Mg Chw 81 MG CHEW DAILY, #30 EA Metoprolol Tartrate (Metoprolol Tartrate) 25 Mg Tab 12.5 MG PO Q12HR, #60 TAB Pantoprazole (Pantoprazole) 40 Mg Tab 40 MG PO DAILY, #30 TAB [Nystatin Liq] () 5 ML SUSP 5 ML SWISH-SWAL QID for 7 Days, #70 ML Continued Medications: Albuterol 18 GM Inh (Ventolin Hfa 18 GM Inh) 90 Mcg/Act Aer 2 PUFF INH Q4-6H PRN for SHORTNESS OF BREATH, #1 INHALER 0 Refills Alprazolam (Xanax) 0.25 Mg Tab 0.25 MG PO Q6H PRN for ANXIETY for 3 Days, #12 TAB 0 Refills Ipratropium HFA 12.9 GM Inh (Atrovent HFA 12.9 GM Inh) 17 Mcg/Actuation Aer 2 PUFF INH QID for Breathing Treatment, #1 INHALER 0 Refills Levothyroxine (Levothyroxine) 25 Mcg Tab Unknown Dose PO DAILY for Thyroid, #30 TAB 0 Refills [guaiFENesin ER] () 600 MG TABCR 600 MG PO BID for Breathing Treatment, #20 Discontinued Medications: Azithromycin (Azithromycin) 500 Mg Tab 500 MG PO DAILY for Infection, #5 TAB 0 Refills Prednisone (Prednisone) 20 Mg Tab 20 MG PO DAILY for Breathing Treatment, #7 TAB 0 Refills Adarsh Solorzano MD Aug 01, 2017 12:12
--- NOTE | 2017-08-01 16:33 | HHI.HCPN ---
Reason for visit a. To assist with evaluation and management of symptoms including: Anxiety, dyspnea, pain, thrush b. To assist medical decision maker(s) with: better understanding of current medical conditions; weighing benefits/burdens of medical treatment options; making medical treatment decisions. Subjective/Interval History Patient is a 86-year-old with a past medical history significant for Alzheimer' s disease, hypothyroidism. He presented to the hospital on July 30, 2017 for midsternal chest pain. Pain started 1 day prior to presentation to the hospital that eventually went away but recurred again the next day on July 30, 2017. Patient also just had a hospitalization from July 24 - July 28 for COPD exacerbation with pneumonia. Follow up visit for symptom management and to assist with verifying medical treatment goals. Patient presents lying in bed, pleasantly confused. Arouses to verbal stimuli, oriented to person. Responds to some questions with brief answers; follows simple commands. Patient has limited insight and judgment related to his medical condition; it is unlikely that he will regain capacity for medical decision-making. Pulmonology was consulted for evaluation and recommendations on management of pneumothorax. Impressions: [id number] right pneumothorax, spontaneous; Small pleural effusion; basilar atelectasis. Dr. Ross spoke with the patient' s after evaluating the patient to discuss treatment options. Since the patient was comfortable, she did not want a chest tube to be placed. She verbalized the patient may pull out the tube secondary to his dementia. Pulmonology will continue to follow the patient. If his pneumothorax worsens or he becomes symptomatic, will reconsider chest tube placement at that time. Follow-up chest x-ray this morning 08/01/2017 showed a persistent infiltrate in the right lung base. There was a small right pleural effusion. No visible pneumothorax. Addendum: Hospice admission nurse met with the patient and his this afternoon and. The patient/ have decided to forego additional diagnostic procedures or aggressive interventions. They have requested hospice services for symptom management and end-of-life care. Patient will likely be discharged later today and transferred to the [facility] for symptom management of anxiety, dyspnea and pain . Advance Directives Living Will: Completed, but not made available Advance Directive Specifics Significant change in goals: Patient enrolled in hospice services; he will likely be transferred to the [facility] sometime this evening. Objective Vital Signs Date Time Temp Pulse Resp B/P (MAP) Pulse Ox O2 Delivery O2 Flow Rate FiO2 08/01/17 15:48 96.8 62 20 130/60 (83) 98 08/01/17 11:55 96.5 55 20 133/67 (89) 98 08/01/17 08:00 96.3 64 20 125/62 (83) 94 08/01/17 08:00 99 Nasal Cannula 2.00 08/01/17 04:00 96.8 62 20 133/75 (94) 100 08/01/17 00:00 96.3 65 20 113/72 (86) 97 07/31/17 20:49 96 Nasal Cannula 2.00 07/31/17 20:00 96.0 69 20 123/74 (90) 97 07/31/17 20:00 55 Intake & Output 08/01/17 08/01/17 06:59 18:59 Intake Total 682 ml 60 ml Balance 682 ml 60 ml Intake Oral 60 ml IV Total 682 ml # Voids 6 # Bowel Movements 1 . Physical Exam CONSTITUTIONAL/GENERAL: This is a frail elderly male, with nasal canula. TUBES/LINES/DRAINS: Nasal cannula, PIV SKIN: No jaundice, rashes, or lesions. Ecchymoses on upper extremities. No wounds seen anteriorly. Skin temperature appropriate. Not diaphoretic. HEAD: Atraumatic. Normocephalic. EYES: Pupils equal and round and reactive. Extraocular motions intact. No scleral icterus. No injection or drainage. Fundi not examined. ENT: Hearing grossly normal. Nose without bleeding or purulent drainage. Throat without visible erythema, some white plaque in the mouth. NECK: Trachea midline. Supple, nontender. No palpable thyroid enlargement or nodularity. CARDIOVASCULAR: Regular rate and rhythm without murmurs, gallops, or rubs. No JVD. Peripheral pulses symmetric. RESPIRATORY/CHEST: Respirations unlabored. No accessory muscle use. Breath sounds diminished bilaterally. GASTROINTESTINAL: Abdomen soft, non-tender, nondistended. No hepato-splenomegaly , or palpable masses. No guarding. Bowel sounds present. GENITOURINARY: Without palpable bladder distension; wearing disposable brief. MUSCULOSKELETAL: Extremities without clubbing, cyanosis, or edema. No mottling or clubbing. LYMPHATICS: No palpable cervical or supraclavicular adenopathy. NEUROLOGICAL: Awake and alert. Pleasantly confused; oriented to person only. Moves all extremities. PSYCHIATRIC: No agitation, but I can see some anxiety with his confusion. . Diagnostic Tests Laboratory Laboratory Tests Test 07/30/17 11:05 07/30/17 16:50 07/30/17 19:25 07/30/17 19:55 White Blood Count 15.6 TH/MM3 (4.0-11.0) Red Blood Count 4.52 MIL/MM3 (4.50-5.90) Hemoglobin 13.8 GM/DL (13.0-17.0) Hematocrit 41.9 % (39.0-51.0) Mean Corpuscular Volume 92.8 FL (80.0-100.0) Mean Corpuscular Hemoglobin 30.5 PG (27.0-34.0) Mean Corpuscular Hemoglobin Concent 32.8 % (32.0-36.0) Red Cell Distribution Width 13.3 % (11.6-17.2) Platelet Count 232 TH/MM3 (150-450) Mean Platelet Volume 8.6 FL (7.0-11.0) Neutrophils (%) (Auto) 83.4 % (16.0-70.0) Lymphocytes (%) (Auto) 7.0 % (9.0-44.0) Monocytes (%) (Auto) 7.3 % (0.0-8.0) Eosinophils (%) (Auto) 0.2 % (0.0-4.0) Basophils (%) (Auto) 2.1 % (0.0-2.0) Neutrophils # (Auto) 13.1 TH/MM3 (1.8-7.7) Lymphocytes # (Auto) 1.1 TH/MM3 (1.0-4.8) Monocytes # (Auto) 1.1 TH/MM3 (0-0.9) Eosinophils # (Auto) 0.0 TH/MM3 (0-0.4) Basophils # (Auto) 0.3 TH/MM3 (0-0.2) CBC Comment AUTO DIFF Differential Comment AUTO DIFF CONFIRMED Prothrombin Time 12.0 SEC (9.8-11.6) Prothromb Time International Ratio 1.2 RATIO Activated Partial Thromboplast Time 25.0 SEC (24.3-30.1) Blood Urea Nitrogen 35 MG/DL (7-18) Creatinine 1.20 MG/DL (0.60-1.30) Random Glucose 120 MG/DL (74-106) Calcium Level 8.4 MG/DL (8.5-10.1) Sodium Level 143 MEQ/L (136-145) Potassium Level 3.9 MEQ/L (3.5-5.1) Chloride Level 107 MEQ/L (98-107) Carbon Dioxide Level 29.5 MEQ/L (21.0-32.0) Anion Gap 7 MEQ/L (5-15) Estimat Glomerular Filtration Rate 57 ML/MIN (>89) Total Creatine Kinase 122 U/L (39-308) 72 U/L (39-308) 62 U/L (39-308) Creatine Kinase MB 3.0 NG/ML (0.5-3.6) Troponin I 0.29 NG/ML (0.02-0.05) 0.26 NG/ML (0.02-0.05) 0.22 NG/ML (0.02-0.05) Lactic Acid Level 1.1 mmol/L (0.4-2.0) Urine Color YELLOW (YELLW/STRAW) Urine Turbidity CLEAR (CLEAR) Urine pH 5.0 (5.0-8.5) Urine Specific [place] GREATER/EQUAL 1.030 Urine Protein TRACE mg/dL (NEG-TRACE) Urine Glucose (UA) NEG mg/dL (NEG) Urine Ketones NEG mg/dL (NEG) Urine Occult Blood NEG (NEG) Urine Nitrite NEG (NEG) Urine Bilirubin NEG (NEG) Urine Urobilinogen 0.2 MG/DL (LESS THAN Urine Leukocyte Esterase NEG (NEG) Urine RBC 0-2 /hpf (0-3) Urine WBC 0-2 /hpf (0-5) Urine Squamous Epithelial Cells 0-5 /hpf (0-5) Urine Amorphous Sediment FEW Urine Bacteria NONE /hpf (NONE) Microscopic Urinalysis Comment CULT NOT INDICATED Test 07/31/17 04:25 White Blood Count 11.0 TH/MM3 (4.0-11.0) Red Blood Count 3.91 MIL/MM3 (4.50-5.90) Hemoglobin 11.9 GM/DL (13.0-17.0) Hematocrit 36.3 % (39.0-51.0) Mean Corpuscular Volume 92.9 FL (80.0-100.0) Mean Corpuscular Hemoglobin 30.5 PG (27.0-34.0) Mean Corpuscular Hemoglobin Concent 32.8 % (32.0-36.0) Red Cell Distribution Width 13.3 % (11.6-17.2) Platelet Count 184 TH/MM3 (150-450) Mean Platelet Volume 8.5 FL (7.0-11.0) Neutrophils (%) (Auto) 82.6 % (16.0-70.0) Lymphocytes (%) (Auto) 8.3 % (9.0-44.0) Monocytes (%) (Auto) 8.6 % (0.0-8.0) Eosinophils (%) (Auto) 0.5 % (0.0-4.0) Basophils (%) (Auto) 0.0 % (0.0-2.0) Neutrophils # (Auto) 9.1 TH/MM3 (1.8-7.7) Lymphocytes # (Auto) 0.9 TH/MM3 (1.0-4.8) Monocytes # (Auto) 0.9 TH/MM3 (0-0.9) Eosinophils # (Auto) 0.1 TH/MM3 (0-0.4) Basophils # (Auto) 0.0 TH/MM3 (0-0.2) CBC Comment AUTO DIFF Differential Comment AUTO DIFF CONFIRMED Platelet Estimate NORMAL (NORMAL) Platelet Morphology Comment NORMAL (NORMAL) Red Cell Morphology Comment NORMAL (NORMAL) Blood Urea Nitrogen 37 MG/DL (7-18) Creatinine 1.10 MG/DL (0.60-1.30) Random Glucose 103 MG/DL (74-106) Calcium Level 7.7 MG/DL (8.5-10.1) Sodium Level 144 MEQ/L (136-145) Potassium Level 3.6 MEQ/L (3.5-5.1) Chloride Level 109 MEQ/L (98-107) Carbon Dioxide Level 28.9 MEQ/L (21.0-32.0) Anion Gap 6 MEQ/L (5-15) Estimat Glomerular Filtration Rate 63 ML/MIN (>89) . Result Diagram: 07/31/1742407/31/17 042 Imaging Last 72 hours Impressions Chest X-Ray 08/01/17 0000 Signed Impressions: CONCLUSION: Stable infiltrate right lung base. There is some lucency in the right lung apex but I do not see a pleural line to confirm a pneumothorax. Chest CT 07/31/17 0000 Signed Impressions: CONCLUSION: 1. There is a small to moderate right-sided pneumothorax. 2. Small bilateral pleural effusions and bibasilar atelectasis. 3. Bilateral interstitial infiltrates. Chest X-Ray 07/30/17 1101 Signed Impressions: CONCLUSION: New right-sided small pleural effusion. Progressive airspace density overlying the right lower lobe. Tubular appearance suggests bronchiectasis. Consider furt her evaluation of the chest with CT. . Assessment and Plan Disease Oriented Problem List: (1) STEMI (ST elevation myocardial infarction) (2) COPD (chronic obstructive pulmonary disease) (3) Pneumothorax Symptom Scale: (1) Anxiety (2) Pain (3) Dyspnea Pertinent Non-Medical Issues Psychosocial: From [place]. This is 2nd marriage. Lives with spouse and stepdaughter. Spiritual: [employer]: has living will but not made available. Need to follow. spouse is proxy currently. Ethical issues impacting care:none currently. Important Contacts [phone] Spouse Nuvia Pena Prognosis Pt with copd, [place], recent hospitalization for both. Appears appropriate for hospice <6 months, if goals of care were comfort oriented. Code Status: No Code Plan ==Symptoms: * pain- chest pain - pneumothorax, STEMI, * thrush- add some magic mouthwash, cont nystatin * dyspnea- copd and STEMI. * anxiety- associated with discomfort and pt's underlying Alzheimer's disease. Xanax availabkle == NO CODE-DNR/DNI == Patient does not have insight or judgment related to his medical conditions. He has Alzheimer's disease. Patient is not expected to regain capacity for decision-making. Patient's is acting in the role of healthcare proxy decision-maker. == Discussed medical treatment goals with Lebron RIVERA, telephonic nurse case manager ( Kianna), hospice admission nurse and Dr. Solorzano == Health Care decision maker- no living will present currently, per she does have a copy and she is the health care surrogate. Per [place] statutes, in the absence of written advanced directives healthcare proxy decision making falls to the patient's . == Patient will be admitted to hospice services; likely transfer to the [facility] later this evening for symptom management. . Attestation To help prompt me to consider important information that might be impacting today's encounter and assessment, information from prior notes written by myself or my colleagues may have been "brought forward" into today's note. My signature on this note, however, is an attestation that I personally performed the exam, history, and/or decision-making noted today, and, unless otherwise indicated, the interactions with patient, family, and staff as well as the review of records all occurred today. I also attest that the listed assessment and stated plan reflect my best clinical judgment today based on the combination of historical information, prior notes, and today's exam/ interactions. When time spent is documented, it refers only to time spent today by the signer, or if indicated, combined time spent today by collaborating physician/nurse practitioner. . Melanie Tipton Aug 01, 2017 16:33
--- NOTE | 2017-08-01 17:59 | HHI.PR ---
Subjective Remarks 87 YOWM with Dementia, COPD,PTX mild pain, does't feel well On RA no cough or sp Objective Vital Signs Vital Signs Date Time Temp Pulse Resp B/P (MAP) Pulse Ox O2 Delivery O2 Flow Rate FiO2 08/01/17 15:48 96.8 62 20 130/60 (83) 98 08/01/17 11:55 96.5 55 20 133/67 (89) 98 08/01/17 08:00 96.3 64 20 125/62 (83) 94 08/01/17 08:00 99 Nasal Cannula 2.00 08/01/17 04:00 96.8 62 20 133/75 (94) 100 08/01/17 00:00 96.3 65 20 113/72 (86) 97 07/31/17 20:49 96 Nasal Cannula 2.00 07/31/17 20:00 96.0 69 20 123/74 (90) 97 07/31/17 20:00 55 I/O 07/31/17 07/31/17 07/31/17 08/01/17 08/01/17 08/01/17 07:00 15:00 23:00 07:00 15:00 23:00 Intake Total 755 ml 450 ml 580 ml 682 ml 60 ml 1080 ml Output Total 800 ml Balance 755 ml 450 ml -220 ml 682 ml 60 ml 1080 ml Intake Oral 100 ml 480 ml 60 ml 1080 ml IV Total 755 ml 350 ml 100 ml 682 ml Output Urine Total 800 ml # Voids 6 4 # Bowel Movements 0 1 2 Result Diagram: 07/31/17 0425 07/31/17 042 Objective Remarks GENERAL: Frail elderly male,NAD SKIN: Warm and dry. HEAD: Normocephalic. EYES: No scleral icterus. No injection or drainage. NECK: Supple, trachea midline. No JVD or lymphadenopathy. CARDIOVASCULAR: Regular rate and rhythm without murmurs, gallops, or rubs. RESPIRATORY: Breath sounds equal bilaterally. No accessory muscle use. GASTROINTESTINAL: Abdomen soft, non-tender, nondistended. MUSCULOSKELETAL: No cyanosis, or edema. BACK: Nontender without obvious deformity. No CVA tenderness. A/P Assessment and Plan IMPRESSION: 1. Small to moderate right pneumothorax, spontaneous. The patient is tolerating well. 2. Small pleural effusion. 3. Basilar atelectasis. 4. Nicotine use. 5. Alzheimer's dementia. 6. Non-ST elevation myocardial infarction. PLAN: Aerosol nebs Cont Abx 02 to keep sat >90% DC plans underway with hospice Kartik Ross MD Aug 01, 2017 17:59
== END 2017-08-01 21:08 | disposition hospice, inpatient (51) | DRG 280 ==
LOC: PHED 10:57 → PHEDA 13:30 → PH3B 14:20
PROVIDERS: ADMIT Family Medicine; ATTEND Family Medicine
DX: I21.3 ST elevation (STEMI) myocardial infarction of unspecified site (principal); J18.9 Pneumonia, unspecified organism; J90 Pleural effusion, not elsewhere classified; J44.0 Chronic obstructive pulmonary disease with (acute) lower respiratory infection; B37.0 Candidal stomatitis; E86.0 Dehydration; G30.9 Alzheimer's disease, unspecified; J93.9 Pneumothorax, unspecified; F02.80 Dementia in other diseases classified elsewhere, unspecified severity, without behavioral disturbance, psychotic disturbance, mood disturbance, and anxiety; I47.1 Supraventricular tachycardia; J98.11 Atelectasis; I25.2 Old myocardial infarction; E03.9 Hypothyroidism, unspecified; I45.10 Unspecified right bundle-branch block; I44.0 Atrioventricular block, first degree; F41.9 Anxiety disorder, unspecified; F17.200 Nicotine dependence, unspecified, uncomplicated; Y95 Nosocomial condition; Z51.5 Encounter for palliative care; Z66 Do not resuscitate; Z85.828 Personal history of other malignant neoplasm of skin
CPT/HCPCS: 71045; 71260; 80048; 81001; 82550; 82552; 83605; 84484; 85025; 85610; 85730; 93005; 99291; J1644; J2543; J3370; J7030; J7050; Q9967